=== PATIENT | female | born 1935 | race Caucasian/White ===

== ENCOUNTER 2019-08-22 11:22 | Outpatient (CLI) | payer MEDICARE, OTHER, SELFPAY ==
--- NOTE | 2019-08-22 11:29 | XR_ITS ---
WS: [id number] Chest 2 views, 08/22/2019 Clinical Data: [facility] Comparison: Portable chest, 04/24/2017 Findings: No nodules, masses or effusions are seen. The heart is normal. The pulmonary vascularity is not increased. There is a patchy opacity seen best on lateral chest overlying the posterior lower surekha ng. This is probably on the left. This could represent minimal pneumonia or atelectasis.. The aortic arch and descending aorta are tortuous. XR/XR chest 2V* 63571 Impression: 1. Patchy opacity seen best on lateral chest which could represent minimal pneu monia and recommend repeat chest x-ray at 1-2 days. 2. Atherosclerosis.
== END 2019-08-22 11:23 | disposition home or self-care (01) ==
PROVIDERS: Family Provider Internal Medicine; PCP Internal Medicine; Visit Provider Internal Medicine
DX: I70.0 Atherosclerosis of aorta (principal); R10.9 Unspecified abdominal pain; R07.9 Chest pain, unspecified
CPT/HCPCS: 71046

== ENCOUNTER → 2019-08-29 13:21 | Outpatient (BNVA) | payer MEDICARE, OTHER, SELFPAY | PROVIDERS: Family Provider Internal Medicine; PCP Internal Medicine; Visit Provider Nurse Practitioner Family | DX: N39.0 Urinary tract infection, site not specified (principal) | CPT/HCPCS: 81001; 87086 ==

== ENCOUNTER 2019-10-02 09:08 | Outpatient (CLI) | payer MEDICARE, OTHER, SELFPAY ==
[2019-10-02 09:15] VITALS: BMI 25.1
--- NOTE | 2019-10-02 10:08 | ECG_ITS ---
NAME OF STUDY: LEXISCAN SESTAMIBI STRESS TEST INDICATION: [Chest Pain] RESTING B/P 176/84 Please note that this is a electrocardiogram portion of the Lexiscan sestamibi stress test. Perfusion imaging will be documented on a separate report. Data At baseline heart rate was noted to be 69 bpm. Baseline blood pressure noted to be 176/84 Target heart rate was 115 . Maximum Heart rate achieved was 102 . Maximum blood pressure achieved was 184/82 mmHg. Reason for, ending this test was completion of the stress protocol. Patient did have sob, during this procedure ,improved with recovery Electrocardiogram Baseline normal sinus rhythm , IRBBB with no ST changes. Exercise EKG at peak exercise reveals normal sinus rhythm with no new ST changes . No cardiac arrhythmias noted. Conclusions 1. Electrocardiographic component of this cardiac stress test is negative for cardiac ischemia. 2. Please see separate report for report for the myocardial perfusion imaging Electronically Signed On 10-03-2019 12:15:54 CDT by Froilan Perez [email or web address]
--- NOTE | 2019-10-02 10:08 | NMCV_ITS ---
NM dominik perf SPECT r/s* [id number] Madi Morgan Age: 84 Gender: F : 1935 Exam Date: 10/02/2019 10:41 Ordering Phys: Ishaan Pla MD Technologist: ROMINA Diamond Exam Location: [facility] Indications: CHEST PAIN STRESS TEST [facility] IMAGE PROTOCOL Rest/Stress 1 Lexiscan Day Radiopharmaceutical Dose (mCi) Administration Site Administered by Rest: Tc-99m 10.7 IV ROMINA Diamond Sestamibi Stress:Tc-99m 32.8 IV ROMINA Finn Sestamibi Rest: 02-Oct-2019 60 Discovery 630 Stress: 02-Oct-2019 30 Discovery 630 0.4mg Lexiscan. Images obtained in supine and prone position. SPECT RESULTS Technical Quality: Excellent Raw Data Analysis: Normal Image Corrections: No attenuation or motion correction applied Summed Stress Score: 9 Summed Rest Score: 4 Summed Difference Score: 5 PERFUSION FINDINGS Small size perfusion abnormality of moderate severity of mid to apical inferolateral and mid inferior wall on rest images with reversibility noted in mid to apical inferior and apical lateral wall on supine stress images. There is improved tracer uptake on mid to apical inferior wall on prone stress images. FUNCTIONAL RESULTS (calculated via Gated SPECT) Stress Image LV EF (%): 85 Stress EDV (mL):68 TID: 1.06 Stress ESV (mL):10 FUNCTIONAL FINDINGS: The left ventricle is normal in size. Transient Ischemia Dilatation of 1.1. There is hyperdynamic left ventricular systolic function. The left ventricular ejection fraction is hyperdynamic with a value of 85%. There is hyperdynamic left ventricular wall thickening. IMPRESSIONS 1. Small sized perfusion abnormality of mid to apical inferolateral and mid to apical inferior hidalgo with reversibility noted in inferior and apical lateral hidalgo on supine stress images and with improved tracer uptake on prone stress images. 2. These findings likely represent attenuation artifact. 3. The left ventricular ejection fraction is hyperdynamic with a value of 85%. 4. There is hyperdynamic left ventricular wall thickening. 5. No significant coronary ischemia based on the study. Sauld Larios MD (Electronically Signed) Final Date: 04 October 2019 15:33 S
--- NOTE | 2019-10-02 12:09 | SUR.PREOP ---
Patient reports no pain or discomfort prior to the start of the procedure.
[2019-10-02] MEDS: regadenoson 0.4 Mg/5 ml Syringe IVP (12:14)
[2019-10-02] MEDS: aminophylline 25 mg/mL SDV 10 mL IVP (12:27)
[2019-10-02 12:37] VITALS: BP 184/86; PULSE 83
== END 2019-10-02 09:09 | disposition home or self-care (01) ==
LOC: CDL 09:09
PROVIDERS: Family Provider Internal Medicine; PCP Internal Medicine; Visit Provider Internal Medicine
DX: R07.9 Chest pain, unspecified (principal)
CPT/HCPCS: 78452; 93017; 96374; A9500; J0280; J2785

== ENCOUNTER → 2020-02-26 11:00 | Outpatient (BNVA) | payer MEDICARE, OTHER, SELFPAY | PROVIDERS: Family Provider Internal Medicine; PCP Internal Medicine; Visit Provider Urology | DX: N39.0 Urinary tract infection, site not specified (principal) | CPT/HCPCS: 80053; 81001; 87077; 87086; 87186 ==

== ENCOUNTER → 2020-10-27 16:02 | Outpatient (BNVA) | payer MEDICARE, OTHER, SELFPAY | PROVIDERS: Family Provider Internal Medicine; PCP Internal Medicine; Visit Provider Urology | DX: N39.0 Urinary tract infection, site not specified (principal) | CPT/HCPCS: 81003; 87077; 87086; 87184 ==

== ENCOUNTER → 2020-11-25 13:00 | Outpatient (BNVA) | payer MEDICARE, OTHER, SELFPAY | PROVIDERS: Family Provider Internal Medicine; PCP Internal Medicine; Visit Provider Internal Medicine | DX: R41.81 Age-related cognitive decline (principal); I10 Essential (primary) hypertension; N39.41 Urge incontinence; N39.0 Urinary tract infection, site not specified; K21.9 Gastro-esophageal reflux disease without esophagitis; R07.9 Chest pain, unspecified | CPT/HCPCS: 80053; 82607; 82746; 84443; 85025 ==

== ENCOUNTER → 2020-12-10 16:12 | Outpatient (BNVA) | payer MEDICARE, OTHER, SELFPAY | PROVIDERS: Family Provider Internal Medicine; PCP Internal Medicine; Visit Provider Nurse Practitioner Family | DX: N39.0 Urinary tract infection, site not specified (principal) | CPT/HCPCS: 81003; 87086 ==

== ENCOUNTER → 2021-01-04 13:45 | Outpatient (BNVA) | payer MEDICARE, OTHER, SELFPAY | PROVIDERS: Family Provider Internal Medicine; PCP Internal Medicine; Visit Provider Nurse Practitioner Family | DX: N39.0 Urinary tract infection, site not specified (principal) | CPT/HCPCS: 81003; 87077; 87086; 87184 ==

== ENCOUNTER 2021-01-13 09:42 | Outpatient (CLI) | payer MEDICARE, OTHER, SELFPAY ==
[2021-01-13] MEDS: iodixanol 320 mg/mL 100mL Btl IV (10:12)
--- NOTE | 2021-01-13 11:30 | CT_ITS ---
WS: [id number] CT ABDOMEN PELVIS TECHNIQUE: Noncontrast CT of the abdomen and contrast-enhanced CT of the abdomen and pelvis with patricia nal and sagittal reformatted images. CLINICAL INFORMATION: GROSS HEMATURIA COMPARISON: CT 9 29,013 DLP: 1346.[address] scans at [facility] use at least one of these dose optimization techniques: automat ed exposure control; mA and/or kV adjustment per patient size (includes targeted exams where dose is matched to clinical indication); or iterative reconstruction. FINDINGS: Diffuse fatty infiltration liver. Normal portal vein and splenic vein. Large esophageal hiatal hernia with intrathoracic stomach. This progressed since 2013. Emphysematous changes in the lung bases. Sub pleural nodule left lower lobe measuring 8 mm with some surrounding infiltrate. Normal spleen. Pancreas appears normal. Adrenal glands are normal. Normal caliber abdominal aorta. Ao rtic calcification. Adrenal glands are normal. Normal renal parenchymal enhancement. Small right renal cysts largest measuring 1.4 CM. Peripelvic l eft renal cysts. Normal corticomedullary differentiation. Normal excretion on the delayed images. Nor mal bladder filling. No visualized filling defects in the bladder. Pleural thickening and enhancement along the anterior lateral bladder wall measuring 1.3 x 1.2 CM. Re commend further evaluation with cystoscopy to exclude neoplasm. Loss of the fat plane between the ant erolateral bladder and sigmoid colon near this area with nondependent air in the bladder. Colonic ves icular fistula not excluded. In addition, mild diffuse thickening and inflammatory stranding about th e sigmoid colon suspicious for mild or early diverticulitis. No abscess or fluid collection. Tortuous sigmoid colon. Disc space narrowing worse at L3-4. CT/CT abdomen pelvis wo/w [id number] IMPRESSION: 1. Focal thickening and enhancement along the anterior lateral bladder wall me asuring 1.3 x 1.2 CM. Recommend evaluation with cystoscopy to evaluate for neop lasm. 2. Moderate amount of nondependent air within the bladder is nonspecific. Butch mmend correlation for recent bladder instrumentation. Sigmoid colon is closely applied to the anterior lateral bladder wall with loss of the fat plane and fis esa not excluded. This is also adjacent to the focal area of thickening and en hancement described above 3. Tortuous sigmoid colon with mild diffuse thickening of the sigmoid colon hein spicious for mild or early diverticulitis. Correlation for infection. No eviden ce of drainable abscess or fluid collection. 4. Large esophageal hiatal hernia with intrathoracic stomach progressed from p revious. 5. Normal bilateral renal parenchymal enhancement with normal excretion. No hy dronephrosis. 6. 1.4 cm right renal cyst. 7. Ovoid opacity left lower lobe measuring 8.2 mm with surrounding infiltrate. Recommend follow-up chest CT.
== END 2021-01-13 09:43 | disposition home or self-care (01) ==
LOC: RAD 09:47
PROVIDERS: PCP Internal Medicine; Visit Provider Urology
DX: R31.0 Gross hematuria (principal); Q61.01 Congenital single renal cyst; K44.9 Diaphragmatic hernia without obstruction or gangrene
CPT/HCPCS: 74178

== ENCOUNTER → 2021-01-15 10:23 | Outpatient (BNVA) | payer MEDICARE, OTHER, SELFPAY | PROVIDERS: PCP Internal Medicine; Visit Provider Urology | DX: R31.0 Gross hematuria (principal); N32.1 Vesicointestinal fistula; N39.0 Urinary tract infection, site not specified | CPT/HCPCS: 81003 ==

== ENCOUNTER → 2021-01-27 14:15 | Outpatient (BNVA) | payer MEDICARE, OTHER, SELFPAY | PROVIDERS: PCP Internal Medicine | DX: Z01.812 Encounter for preprocedural laboratory examination (principal); Z20.822 Contact with and (suspected) exposure to COVID-19 | CPT/HCPCS: 87635 ==

== ENCOUNTER 2021-01-29 08:53 | Day surgery (SDC) | payer MEDICARE, OTHER, SELFPAY ==
[2021-01-27 13:07] VITALS: BMI 23.0
--- NOTE | 2021-01-29 09:11 | ANES.PREANE2 ---
Pre-Anesthetic Assessment Pre-Anesthetic Assessment: Height/Weight: Height 1.6 m Weight 58.967 kg Proposed Procedure: Operation Date: 01/29/21 10:30 Proposed Procedures p Colonoscopy G0121 Z12.11(Not Applicable) - Ishaan Pal MD Was Beta Vince taken within 24 hours: N/A Was Clonidine taken within 24 hours: N/A Social: Social History: No alcohol and No tobacco Exam: Pre-Anes Outpt Exam: alert, oriented x 3, clear to auscultation bilaterally and regular rate & rhythm Airway: Submandibular: WNL Cervical ROM: WNL MP: 2 Dentition: False CV/HEM: CV/HEM: HTN GI: GI: GERD Musc/skel: Musc/skel: OA/DJD Neuropsych: Neuropsych: Anxiety Anesthetic Plan: ASA status: 3 Anesthesia: MAC Risk of > 500 ml blood loss (7ml/kg in children): No PFSH Anesthesia PFSH: Medical History (Updated 01/25/21 @ 11:02 by Barrtet Pritchett MD) Colovesical fistula Constipation Essential (primary) hypertension GERD (gastroesophageal reflux disease) Recurrent UTI Urgency incontinence Surgical History (Updated 01/25/21 @ 11:03 by Barrett Pritchett MD) History of colonoscopy 04/09/2018 S/P cystoscopy Family History Other Diabetes Heart disease Social History Alcohol intake: never Adopted: No Caregiver/support person: No Lives independently: No Household members: spouse Housing: House Marital status: History of recent travel: No Data Anesthesia Cardiac Studies: No Data to Display
[2021-01-29 09:30] VITALS: BP 149/71; PULSE 92; RESP 18; TEMP 36.9; O2SAT 96
[2021-01-29] MEDS: sodium chloride 0.9% 1,000 ML 30 ML IV (09:45)
[2021-01-29 11:37] VITALS: BP 81/42; PULSE 81; RESP 18; TEMP 36.2; O2SAT 97
[2021-01-29 11:54] VITALS: BP 106/47; PULSE 66; RESP 18; TEMP 36.2; O2SAT 97
--- NOTE | 2021-01-29 12:02 | XR_ITS ---
WS: [id number] ABDOMEN 1 VIEW(S) HISTORY: POST COLONOSCOPY COMPARISON: 04/17/2013 Large amount of gas throughout the GI tract from the recent colonoscopy. No definite free air is iden tified although this is a very insensitive examination. No suspicious calcifications or masses. Osteopenia. XR/XR abdomen 1V* 13175 IMPRESSION: 1. No definite free air identified. 2. Increased air throughout the GI tract. 3. Discussed findings with Dr. Pla. Discussed obtained noncontrast CT of t he abdomen if there is any concern for perforation. Radiograph is a very insens itive examination for free air.
--- NOTE | 2021-01-29 12:14 | SUR.PHASEII ---
Dr. Pal ordered xray of abdomen due to patient complaint of pain. Xray here to perform test.
--- NOTE | 2021-01-29 12:47 | SUR.PHASEII ---
Dr. Pal looked at xray stated everything looked fine patient ok to go home.
--- NOTE | 2021-01-29 15:49 | ANE.PACU2 ---
Inpatient post-anesthesia follow up: Airway intact: Yes Vital signs: Temperature 97.2 F Pulse Rate 66 Respiratory Rate 18 Blood Pressure 106/47 Pulse Oximetry 97 Oxygen Delivery Me thod Room Air Oxygen Flow Rate Fraction of Inspir ed Oxygen Hydration adequate: Yes Nausea and vomiting: No Pain level: 1 Mental status: Baseline
--- NOTE | 2021-02-05 09:13 | W.PM.OPSFHP ---
Same Day Surgery H&P Indication for Procedure/HPI DATE OF PROCEDURE: February 05, 2021 CHIEF COMPLAINT/INDICATIONFOR SURGICAL PROCEDURE: Colovesical fistula PREOP DIAGNOSIS: Colovesicular fistula PLANNED PROCEDRUE: Operation Date: 01/29/21 10:30 Proposed Procedures p Colonoscopy G0121 Z12.11(Not Applicable) - Ishaan Pal MD Medications/Allergies* Allergies/Adverse Reactions Allergy/AdvReac Type Severity Reaction Status Date / Time naproxen [From Aleve] AdvReac ADR-Itching Verified 01/29/21 09:29 Pertinent History/Comorbid Conditions* Medical History (Updated 01/25/21 @ 11:02 by Barrett Pritchett MD) Colovesical fistula Constipation Essential (primary) hypertension GERD (gastroesophageal reflux disease) Recurrent UTI Urgency incontinence Surgical History (Updated 01/25/21 @ 11:03 by Barrett Pritchett MD) History of colonoscopy 04/09/2018 S/P cystoscopy Family History (Updated 08/22/19 @ 08:53 by Shayla Norris LPN) Diabetes Heart disease Social History Alcohol intake: never Adopted: No Caregiver/support person: No Lives independently: No Household members: spouse Housing: House Marital status: History of recent travel: No Pertinent Exam Findings alert, oriented x 3, clear to auscultation bilaterally, regular rate & rhythm, operative site marked and procedure specific exam findings Recommendations Surgery/Procedure today Coding Level of Care Code Acute Metal 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
== END 2021-01-29 13:04 | disposition home or self-care (01) ==
PROVIDERS: PCP Internal Medicine; Visit Provider Internal Medicine
PROC: 0DJD8ZZ Inspection of Lower Intestinal Tract, Via Natural or Artificial Opening Endoscopic (ICD-10-PCS; CPT 45378; principal; 2021-01-29 10:30)
DX: Z12.11 Encounter for screening for malignant neoplasm of colon (principal); Z01.818 Encounter for other preprocedural examination; K57.30 Diverticulosis of large intestine without perforation or abscess without bleeding; I10 Essential (primary) hypertension; K21.9 Gastro-esophageal reflux disease without esophagitis; M19.90 Unspecified osteoarthritis, unspecified site; F41.9 Anxiety disorder, unspecified; Z82.49 Family history of ischemic heart disease and other diseases of the circulatory system; Z83.3 Family history of diabetes mellitus
CPT/HCPCS: 45378; 74018; 96360; 96361; J2704; J7030

== ENCOUNTER → 2021-02-09 10:29 | Day surgery (SDC) | payer MEDICARE, OTHER, SELFPAY | PROVIDERS: PCP Internal Medicine; Visit Provider Urology | DX: Z01.818 Encounter for other preprocedural examination (principal) | CPT/HCPCS: 93005 ==

== ENCOUNTER → 2021-02-09 11:53 | Outpatient (BNVA) | payer MEDICARE, OTHER, SELFPAY | PROVIDERS: PCP Internal Medicine; Visit Provider Surgery | DX: Z20.822 Contact with and (suspected) exposure to COVID-19 (principal) | CPT/HCPCS: 87635 ==

== ENCOUNTER 2021-02-15 12:35 | Inpatient (IN) | payer MEDICARE, OTHER, SELFPAY ==
--- NOTE | 2021-02-09 10:29 | ECG_ITS ---
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 Measurements Intervals Marissa Rate: 63 P: 43 DC: 172 QRS: 15 QRSD: 130 T: 31 QT: 425 QTc: 435 Interpretive Statements SINUS RHYTHM RIGHT BUNDLE BRANCH BLOCK [120+ ms QRS DURATION, UPRIGHT V1, 40+ ms S IN I/aVL/V4/V5/V6] Compared to ECG 04/24/2017 13:47:14 Sinus bradycardia no longer present Electronically Signed On 02-09-2021 14:58:22 CDT by Miguel Alvarez M.D. [id number]
[2021-02-09 10:30] VITALS: BMI 23.7
[2021-02-09 11:24] LABS: Basophils % 0.5 %; Eosinophils # 0.1 10^3/uL (0.0-0.8); Eosinophils % 0.8 %; Hematocrit 38.9 % (37.0-47.0); Hemoglobin 12.1 g/dL (11.5-15.3); Lymphocytes # 1.8 10^3/uL (0.8-4.8); Lymphocytes % 28.6 %; Mean Corpuscular HGB Conc 31.1 g/dL (30.0-36.0); Mean Corpuscular Hemoglobin 29.7 pg (28.0-34.0); Mean Corpuscular Volume 95.6 fL (81-99); Mean Platelet Volume 9.7 fL (7.4-10.4); Monocytes # 0.4 10^3/uL (0.2-0.9); Monocytes % 5.9 %; Neutrophils # 4.09 10^3/uL (1.8-7.7); Nucleated Red Blood Cells % 0 %; Platelet Count 260 10^3/cmm (130-400); Red Blood Count 4.07 10^6/uL (4.1-5.3); Red Cell Distribution Width 14.7 % (12.1-15.1); White Blood Count 6.4 10^3/uL (4.0-10.0)
[2021-02-09 11:59] LABS: Anion Gap 12.5 (5-19); Blood Urea Nitrogen 13 mg/dL (8-23); Calcium 8.5 mg/dL (8.5-10.5); Carbon Dioxide 25 mmol/L (22-29); Chloride 105 mmol/L (98-107); Glucose 92 mg/dL (65-115); Osmolality Calculated 286 mOsm/kg (285-295); Potassium 4.5 mmol/L (3.5-5.1); Sodium 138 mmol/L (136-145)
--- NOTE | 2021-02-09 16:16 | ANES.PREANE2 ---
Pre-Anesthetic Assessment Pre-Anesthetic Assessment: Height/Weight: Height 1.6 m Weight 60.781 kg Preop Diagnosis: Colovesicular fistula Proposed Procedure: Operation Date: 02/15/21 11:20 Proposed Procedures s partial Cystectomy 07928 [id number] n32.1(Not Applicable) - Angel Joya MD s possible Cystoscopy(Not Applicable) - Angel Joya MD p Laparoscopic Sigmoidectomy(Not Applicable) - Barrett Pritchett MD s Colostomy(Not Applicable) - Barrett Pritchett MD Was Beta Vince taken within 24 hours: N/A Was Clonidine taken within 24 hours: N/A Social: Social History: No alcohol and No tobacco Exam: Pre-Anes Outpt Exam: alert, oriented x 3, clear to auscultation bilaterally and regular rate & rhythm Airway: Submandibular: WNL Cervical ROM: WNL MP: 2 Dentition: False CV/HEM: CV/HEM: HTN GI: GI: GERD Comments: Colovesicular fistula Musc/skel: Musc/skel: OA/DJD Neuropsych: Neuropsych: Anxiety Anesthetic Plan: ASA status: 3 Anesthesia: General Risk of > 500 ml blood loss (7ml/kg in children): Yes, adequate IV access and fluids planned PFSH Anesthesia PFSH: Medical History (Updated 01/25/21 @ 11:02 by Barrett Pritchett MD) Colovesical fistula Constipation Essential (primary) hypertension GERD (gastroesophageal reflux disease) Recurrent UTI Urgency incontinence Surgical History (Updated 01/25/21 @ 11:03 by Barrett Pritchett MD) History of colonoscopy 04/09/2018 S/P cystoscopy Family History Other Diabetes Heart disease Social History Alcohol intake: never Adopted: No Caregiver/support person: No Lives independently: No Household members: spouse Housing: House Marital status: History of recent travel: No Data Anesthesia CBC & Chem 7: 02/09/21 11:10 02/09/21 11:10 Other Labs: Laboratory Results - last 48 hr 02/09/21 02/09/21 11:10 11:10 WBC 6.4 RBC 4.07 L Hgb 12.1 Hct 38.9 MCV 95.6 MCH 29.7 MCHC 31.1 RDW 14.7 Plt Count 260 MPV 9.7 Neut % (Auto) 64.0 Lymph % (Auto) 28.6 [place] % (Auto) 5.9 Eos % (Auto) 0.8 Baso % (Auto) 0.5 Neut # (Auto) 4.09 Lymph # (Auto) 1.8 [place] # (Auto) 0.4 Eos # (Auto) 0.1 Baso # (Auto) 0.0 Nucleated RBC % (auto) 0 Nucleated RBCs # 0.0 Sodium 138 Potassium 4.5 Chloride 105 Carbon Dioxide 25 Anion Gap 12.5 BUN 13 Creatinine 0.7 GFR Calculation Not Reportable Glucose 92 Calculated Osmolality 286 Calcium 8.5 Cardiac Studies: No Data to Display
[2021-02-15] VITALS (15 sets, daily range): BP systolic 136–185; BP diastolic 61–85; PULSE 72–89; RESP 14–20; TEMP 36.3–37; O2SAT 92–99
[2021-02-15] MEDS: sodium chloride 0.9% 1,000 ML 30 ML IV (10:12)
--- NOTE | 2021-02-15 11:50 | W.PM.OPSUD ---
Surgery/Procedure H&P Update DATE OF PROCEDURE: February 15, 2021 DATE H&P PERFORMED: 01/25/21 H&P UPDATE INFORMATION: I have reviewed H&P completed within last 30 days, I have examined patient prior to procedure and No changes to prior documentation PREOP DIAGNOSIS: Colovesical fistula PLANNED PROCEDURE: Operation Date: 02/15/21 10:55 Proposed Procedures s partial Cystectomy 48172 [id number] n32.1(Not Applicable) - Angel Joya MD s possible Cystoscopy(Not Applicable) - Angel Joya MD p Laparoscopic Sigmoidectomy(Not Applicable) - Barrett Pritchett MD s Possible Colostomy(Not Applicable) - Barrett Pritchett MD
[2021-02-15] MEDS: piperacillin-tazobactam 3.375 GM in sodium chloride 0.9% (plus) 50 ML IV (13:05)
--- NOTE | 2021-02-15 14:39 | SUR.OPER ---
NOTIFIED OF PROGRESS OF SURGERY AND PATIENT STATUS PER PHONE NUMBER PROVIDED
--- NOTE | 2021-02-15 15:15 | PM.OP ---
Operative Report Date of procedure: February 15, 2021 Pre-op Diagnosis: Colovesical fistula Post-op diagnosis: same Procedure Done: 1. Closure of cystotomy Pathology: none sent Surgeon: Toan Glass Melt Operator: Shreyas Anesthesia: General Estimated blood loss: Less than 10 cc Urine output: Not measured Complications: None Findings: Bladder closure created with division of colovesical fistula was located on the dome. Closed in 2 layers. Watertight on irrigation of the bladder Condition: stable Disposition: PACU Brief History: Mrs. Morgan is a very pleasant 85-year-old white female recently diagnosed with a colovesical fistula. Post diagnosis colonoscopy showed no evidence of malignant process. She is admitted now for a combined procedure with Dr. Pritchett and myself for treatment of the colovesical fistula. Procedure: After routine preoperative evaluation examination and obtaining of informed consent she was taken to the operating suite on 02/15/2021 where general anesthesia was administered without difficulty. Please see Dr. Pritchett's note regarding all facets of the procedure prior to my arrival. I was called into the room after the bowel had been taken off of the bladder with resection of the involved bladder wall with good exposure of the edges, Trammell balloon, and both ureteral orifices well away from the incision. The wound was irrigated. Utilizing a self-retaining at retractor bladder wall was exposed. Allis clamps were placed at both ends of the incision with closure planned horizontally. The first layer involve 3-0 Vicryl with a mucosal muscularis running closure. The incision was closed from lateral to medial on both sides. A second layer was a 2-0 Vicryl with imbricating adventitial muscularis running suture. Also close from lateral to medial on both sides. The bladder was inflated with 60 cc of sterile saline and watertightness was confirmed. The patient was turned back over to Dr. Pritchett for completion of his portion. We reviewed placement peritoneum were available over the incision and if possible omental fat pad to help reduce the risk of urine leakage. She tolerated this portion procedure well without complications.
[2021-02-15] MEDS: sodium chloride 0.9% SDV 10 mL 20 ML (16:45)
--- NOTE | 2021-02-15 17:27 | PM.OP ---
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 The patient was placed in modified lithotomy position with shoulder support and the Trammell catheter was placed. The rectum was irrigated with diluted Betadine using red rubber catheter. The abdomen and the perineum was prepped and draped in a sterile manner. Using a 15 blade, a midline supraumbilical incision was made and using open Echevarria technique the peritoneal cavity was entered, 12 mm port was placed and 15 mm of pneumoperitoneum was created. A 10 mm 30? scope was introduced. 5 mm ports were placed in the right lower quadrant and at the level of the umbilicus under direct visualization in the midclavicular line. Examination of the colon revealed a sigmoid colon adherent to the inferior abdominal wall as well as the dome of the urinary bladder. The patient was placed in steep Trendelenburg position and rotated to the right in order to place a small bowel loops in the right upper quadrant. The transverse colon was retracted superiorly. There were adhesions of the sigmoid colon to the abdominal wall which were taken down. The line of Toldt was opened along the descending colon up to the splenic flexure and the avascular plane was entered to mobilize the descending colon medially. Using Enseal the sigmoid colon was slowly freed up from the inferior abdominal wall and the dissection was carried inferiorly. There was no plane appreciated between the dome of the urinary bladder and the sigmoid colon and therefore an opening was made in the urinary bladder where the tissue appeared healthy and using Enseal a partial cystectomy was performed incorporating the colovesical fistula. The dissection was carried laterally and the phlegmon was freed from the right pelvic wall. The sigmoid mesocolon was divided using Enseal down to the proximal rectum. The uterus was adherent to the anterior aspect of the rectum and this was partially mobilized. The right lower quadrant port was converted to a 12 mm Echevarria port. 2 loads of 45 mm blue load [place] JULISSA stapler was introduced through the right lower quadrant port to divide the rectum distally. At this point it appeared that the descending colon reached up to the rectum. 20cc of saline mixed with 20cc of Exparel mixed with 20cc of 0.5% Marcaine was infiltrated in the midclavicular line under laparoscopic visualization for a TAP block bilaterally. An incision was made in the suprapubic area using a 15 blade, subcutaneous tissue, linea alba and peritoneum was divided to enter the peritoneal cavity. A wound protector was placed and at this point Dr. Joya joined me. He performed a closure of the partial cystectomy. Please refer to his note for further details. After closure of the cystectomy had been performed, the sigmoid colon was exteriorized. A noncrushing bowel clamps were placed on the descending colon and an Autosuture pursestring was placed and the colon was divided and the specimen removed from the operating field. Serial anal dilators were used and it was decided to proceed with the 29 mm EEA stapler. The anvil of the EEA stapler was introduced into the descending colon and tied down. The colon was introduced into the peritoneal cavity and the pneumoperitoneum was recreated. The anus was digitally dilated and the EEA stapler was introduced through the anal canal and the trocar passed through the previously created staple line and attached to the anvil after ensuring that there was no twisting of the mesentery. The EEA stapler was fired to create the stapled 29 mm end-to-end anastomosis and 2 intact doughnuts were retrieved which were sent as proximal margin and distal margin to pathology. A colonoscope was introduced and passed beyond the anastomosis after submerging the anastomosis under saline in the pelvis. The air leak test was negative. There was no significant bleeding noted from the staple line. The colonoscope was withdrawn. All 3 ports were removed under direct visualization and the fascia in the midline was closed using #1 loop PDS. The fascia of the right lower quadrant port and supraumbilical port was closed using [id number] 0 Vicryl suture. The subcutaneous tissue was approximated using 3-0 Vicryl suture and skin was closed using running subcuticular 4-0 Monocryl suture and Dermabond. The patient was subsequently extubated and transferred to recovery room with a Trammell catheter in place.
--- NOTE | 2021-02-15 17:32 | SUR.PHASEI ---
1724 PATIENT TO PACU FROM OR. RR EVEN AND UNLABORED. SPO2 99% ON SIMPLE MASK AT 6L. DERMABOND TO ABDOMEN X4 INCISIONS. CDI. MARIE CATH IN PLACE, PINK TINGED URINE NOTED, SECURED TO RIGHT LEG.
--- NOTE | 2021-02-15 18:14 | SUR.PHASEI ---
1755 PATIENT TO MED SURG VIA BED. NO DISTRESS. INCISIONS TO ABDOMEN, CDI, CLOSED WITH DERMABOND. FAMILY ON MED SURG WHEN I ARRIVED WITH PATIENT.
[2021-02-15] MEDS: sennosides-docusate Tablet 1 TAB PO (18:29)
[2021-02-15] MEDS: D5-NS 0.45% + KCL 20 mEq 20 MEQ/1,000 ML BAG 100 MEQ IV (18:29)
[2021-02-15] MEDS: famotidine 20 mg/2 mL INJ IVP (18:29)
--- NOTE | 2021-02-15 19:32 | ANE.PACU2 ---
Inpatient post-anesthesia follow up: Airway intact: Yes Vital signs: Temperature 97.5 F Pulse Rate 84 Respiratory Rate 18 Blood Pressure 165/64 Pulse Oximetry 98 Oxygen Delivery Me thod Nasal Cannula Oxygen Flow Rate 2 Fraction of Inspir ed Oxygen Hydration adequate: Yes Nausea and vomiting: No Pain level: 2 Mental status: Baseline
[2021-02-15 20:12] LABS: Basophils # 0.1 10^3/uL (0.0-0.1); Basophils % 0.5 %; Hematocrit 40.9 % (37.0-47.0); Hemoglobin 12.6 g/dL (11.5-15.3); Lymphocytes # 0.5 10^3/uL (0.8-4.8); Lymphocytes % 3.5 %; Mean Corpuscular HGB Conc 30.8 g/dL (30.0-36.0); Mean Corpuscular Hemoglobin 29.9 pg (28.0-34.0); Mean Corpuscular Volume 96.9 fL (81-99); Mean Platelet Volume 9.8 fL (7.4-10.4); Monocytes # 0.6 10^3/uL (0.2-0.9); Monocytes % 4.2 %; Neutrophils # 11.91 10^3/uL (1.8-7.7); Neutrophils % 91.5 %; Nucleated Red Blood Cells % 0 %; Platelet Count 273 10^3/cmm (130-400); Red Blood Count 4.22 10^6/uL (4.1-5.3); Red Cell Distribution Width 14.6 % (12.1-15.1)
[2021-02-15 20:39] LABS: Anion Gap 13.9 (5-19); Blood Urea Nitrogen 9 mg/dL (8-23); Calcium 7.4 mg/dL (8.5-10.5); Carbon Dioxide 23 mmol/L (22-29); Chloride 106 mmol/L (98-107); Glucose 163 mg/dL (65-115); Osmolality Calculated 290 mOsm/kg (285-295); Potassium 3.9 mmol/L (3.5-5.1); Sodium 139 mmol/L (136-145)
[2021-02-15] MEDS: ceFOXitin 2,000 MG in sodium chloride 0.9% (plus) 50 ML 100 MG IV (22:02)
[2021-02-16] VITALS (13 sets, daily range): BP systolic 136–179; BP diastolic 56–68; PULSE 68–89; RESP 14–20; TEMP 36.8–37.3; O2SAT 88–100
[2021-02-16] MEDS: HYDROcodone-acetaminophen 5-325 mg Tablet 1 TAB PO ×4 (00:10→20:56)
[2021-02-16] MEDS: D5-NS 0.45% + KCL 20 mEq 20 MEQ/1,000 ML BAG 100 MEQ IV (04:36)
[2021-02-16] MEDS: ceFOXitin 2,000 MG in sodium chloride 0.9% (plus) 50 ML 100 MG IV (04:38)
[2021-02-16] MEDS: nitroglycerin 0.4 mg sublingual Tablet SUBLINGUAL ×2 (04:53→18:31)
[2021-02-16] MEDS: morphine 4 mg/mL SDV 1 mL 3 MG IVP (05:04)
--- NOTE | 2021-02-16 05:05 | PC.NURSE ---
PAIN Pt had c/o chest pain Pain was in right side of chest and she was belching. Had laproscopic procedure so explained may be from that but would try Ntg if pt wanted. She wanted to try a Ntg. just to see if it would help. Did express some relief with it but then stated pain for sure in her abdomen now. RN gave Morphine IV and will monitor
[2021-02-16 05:50] LABS: Basophils % 0.1 %; Hematocrit 37.9 % (37.0-47.0); Hemoglobin 11.4 g/dL (11.5-15.3); Lymphocytes # 1.4 10^3/uL (0.8-4.8); Lymphocytes % 12.1 %; Mean Corpuscular HGB Conc 30.1 g/dL (30.0-36.0); Mean Corpuscular Hemoglobin 29.5 pg (28.0-34.0); Mean Corpuscular Volume 98.2 fL (81-99); Monocytes # 0.7 10^3/uL (0.2-0.9); Monocytes % 5.9 %; Neutrophils # 9.35 10^3/uL (1.8-7.7); Neutrophils % 81.6 %; Nucleated Red Blood Cells % 0 %; Platelet Count 272 10^3/cmm (130-400); Red Blood Count 3.86 10^6/uL (4.1-5.3); Red Cell Distribution Width 14.7 % (12.1-15.1); White Blood Count 11.5 10^3/uL (4.0-10.0)
[2021-02-16 06:09] LABS: Anion Gap 12.2 (5-19); Blood Urea Nitrogen 7 mg/dL (8-23); Calcium 7.7 mg/dL (8.5-10.5); Carbon Dioxide 21 mmol/L (22-29); Chloride 107 mmol/L (98-107); Glucose 126 mg/dL (65-115); Osmolality Calculated 282 mOsm/kg (285-295); Potassium 4.2 mmol/L (3.5-5.1); Sodium 136 mmol/L (136-145)
[2021-02-16] MEDS: lanolin oint 7 gm 1 APPLIC TOPICAL (06:24)
[2021-02-16] MEDS: famotidine 20 mg/2 mL INJ IVP ×2 (07:05→18:00)
[2021-02-16] MEDS: losartan 50 mg Tablet 100 MG PO (08:18)
[2021-02-16] MEDS: sennosides-docusate Tablet 1 TAB PO ×2 (08:19→18:00)
--- NOTE | 2021-02-16 09:53 | PC.NURSE ---
Removed urinary catheter. Catheter intact. Patient tolerated well. Bedside comode placed by patient's bed.
--- NOTE | 2021-02-16 10:29 | PC.CHAP ---
Pastoral Care Encounter/Spiritual Assessment Type of Contact [] Declined storage engineer visit [] Patient/Family/Request visit [] Outpatient visit [] Follow-up visit [] Physician referral [] Code/Alert [x] Routine visit [] Staff referral [] Actively dying [] Patient sleeping [] Family support [] [] Out of room [] Palliative care [] [] Receiving care in room [] Pre-surgical visit [] Trauma [] Long length of stay [] ICU visit [] Other: Relational/Emotional Strength [x] Patient feels connected with others/family/visitors/staff [] Distress [] Loneliness/isolation [] Abandonment Spirituality of Patient [x] Person of [place] [x] Attends Quaker of their [place] []x Believes in Prayer [] Reads Bible or Orthodox materials [] There are Spiritual issues to be addressed Operations Plant Attendant Interventions [x] Prayer [x]x Active listening x[] Non-anxious presence [x] Spiritual/emotional support [] Crisis/trauma care [] Spiritual counseling [] Bereavement support [] Provided bereavement packet [] Provided Bible/devotional materials [] Provided toy/stuffed animal, coloring book to patient or family member [] Provided Communion [] Anointing/[place] [] Salvation [] Completed spiritual assessment [] Other: Impact on Illness or Injury [] Angry [] Fearful [] Anxious [] Often cries [] Exhaustion [] Unable to work [] Unable to attend yazdanism [] Unable to walk/stand [] Unable to read [] Unable to drive [] Unable to eat/drink [] Unable to sleep [] Unable to be with family [] Patient intubated [] Other: Summary PATIENT SAYS LESS PAIN TODAY Time spent with patient 10 MIN
--- NOTE | 2021-02-16 13:51 | PC.NURSE ---
Patient rated pain at a 6/10. Patient refused wanting a pain medication at this time. Will continue to monitor
[2021-02-16] MEDS: enoxaparin 40 mg/0.4 mL Syringe SUBCUT (15:47)
--- NOTE | 2021-02-16 16:49 | PC.NURSE ---
Updated patient's daughter on patient's condition.
--- NOTE | 2021-02-16 17:53 | PM.PN ---
Subjective Subjective: Interval history: pat complaining of abdominal pain, no nausea, vomiting, no flatus or BM, tolerating clears Medications: Reviewed: Yes Vitals/I&O/Wt Last Vital Signs Temp 98.6 F 02/16/21 15:38 Pulse 71 02/16/21 15:38 Resp 14 02/16/21 15:38 BP 154/63 02/16/21 15:38 Pulse Ox 97 02/16/21 15:38 02/16/21 02/16/21 02/16/21 06:59 14:59 22:59 Intake Total 1050 / 2100 553.333 / 553.333 Output Total 300 / 1450 800 / 800 Balance 750 / 650 -246.667 / -246.667 Physical Exam Narrative: EXAM NARRATIVE: Abdomen: soft, tender, non distended, incision c/d/i Urinary Catheter Management^: Trammell: Cath Placed During This Visit: yes Urinary Catheter Date of Insertion: 02/15/21 Urinary Catheter Time of Insertion: 13:22 Data : 02/16/21 05:14 02/16/21 05:14 A&P Assessment and plan (1) Status post laparoscopic-assisted sigmoidectomy: s/p laparoscopic assisted sigmoidectomy with partial cystectomy with post op ileus decrease ivf @30cc/hr morphine/norco for pain control senna s for bowel regimen keep Trammell for 2 weeks resume home meds Lovenox/SCD for DVT prophylaxis Pepcid for GI prophylaxis Patient will need greater than 2 nights of inpatient stay Status: Acute Attestations Medical Necessity Statement*: patient will need greater than 2 nights of inpatient stay Coding Level of Care Code Acute 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
--- NOTE | 2021-02-16 18:41 | PC.NURSE ---
patient has been up and ambulating in the room all day. patient has gotten self out of bed and used the BSC and bathroom. patient even walked to the doorway several times and looked down the reilly.
[2021-02-16] MEDS: ondansetron 2 mg/ML SDV 2 mL 4 MG IVP (21:30)
[2021-02-17] VITALS (8 sets, daily range): BP systolic 135–182; BP diastolic 61–67; PULSE 70–87; RESP 14–18; TEMP 36.7–37; O2SAT 93–96
[2021-02-17 02:44] LABS: Basophils % 0.3 %; Eosinophils % 0.3 %; Hematocrit 35.8 % (37.0-47.0); Hemoglobin 11.1 g/dL (11.5-15.3); Lymphocytes # 1.5 10^3/uL (0.8-4.8); Lymphocytes % 17.5 %; Mean Corpuscular Hemoglobin 30.2 pg (28.0-34.0); Mean Corpuscular Volume 97.3 fL (81-99); Mean Platelet Volume 9.9 fL (7.4-10.4); Monocytes # 0.6 10^3/uL (0.2-0.9); Neutrophils # 6.56 10^3/uL (1.8-7.7); Neutrophils % 74.6 %; Nucleated Red Blood Cells % 0 %; Platelet Count 234 10^3/cmm (130-400); Red Blood Count 3.68 10^6/uL (4.1-5.3); Red Cell Distribution Width 14.6 % (12.1-15.1); White Blood Count 8.8 10^3/uL (4.0-10.0)
[2021-02-17 03:04] LABS: Anion Gap 9.7 (5-19); Blood Urea Nitrogen 5 mg/dL (8-23); Calcium 8.1 mg/dL (8.5-10.5); Carbon Dioxide 26 mmol/L (22-29); Chloride 107 mmol/L (98-107); Glucose 112 mg/dL (65-115); Osmolality Calculated 284 mOsm/kg (285-295); Potassium 4.7 mmol/L (3.5-5.1); Sodium 138 mmol/L (136-145)
[2021-02-17] MEDS: D5-NS 0.45% + KCL 20 mEq 20 MEQ/1,000 ML BAG 30 MEQ IV (03:13)
[2021-02-17] MEDS: famotidine 20 mg/2 mL INJ IVP ×2 (06:28→18:07)
[2021-02-17] MEDS: HYDROcodone-acetaminophen 5-325 mg Tablet 1 TAB PO ×2 (07:45→18:14)
[2021-02-17] MEDS: losartan 50 mg Tablet 100 MG PO (09:54)
[2021-02-17] MEDS: sennosides-docusate Tablet 1 TAB PO ×2 (09:54→18:07)
--- NOTE | 2021-02-17 13:24 | P.PN_ITS ---
Subjective Subjective: Interval history: Patient denies any nausea, vomiting, flatus or BM, has some intermittent abdominal pain, off oxygen Vitals/I&O/Wt Last Vital Signs Temp 98.4 F 02/17/21 12:00 Pulse 84 02/17/21 12:00 Resp 17 02/17/21 12:00 BP 182/66 02/17/21 12:00 Pulse Ox 96 02/17/21 12:00 02/16/21 02/17/21 02/17/21 22:59 06:59 14:59 Intake Total 360 / 1480.000 566.667 / 1480.000 Output Total 700 / 1900 400 / 1900 Balance -340 / -420.000 166.667 / -420.000 Physical Exam Narrative: EXAM NARRATIVE: Abdomen: Soft, minimally tender, nonrigid, incision clean dry and intact Urinary Catheter Management^: Trammell: Cath Placed During This Visit: yes Reason for Continuing Indwelling Catheter: Perioperative Use in Selected Surgeries Urinary Catheter Date of Insertion: 02/16/21 Urinary Catheter Time of Insertion: 18:15 Data : 02/17/21 02:25 02/17/21 02:25 A&P Assessment and plan (1) Status post laparoscopic-assisted sigmoidectomy: s/p laparoscopic assisted sigmoidectomy with partial cystectomy with post op ileus DC IV fluids morphine/norco for pain control senna s for bowel regimen keep Trammell for 2 weeks Continue home meds Lovenox/SCD for DVT prophylaxis Pepcid for GI prophylaxis Patient will need greater than 2 nights of inpatient stay to ensure resolution of ileus Status: Acute Attestations Medical Necessity Statement*: Status post sigmoid colectomy requiring continued inpatient stay Coding Level of Care Code Acute 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
[2021-02-17] MEDS: labetalol 5 mg/mL SDV 20mL 10 MG IVP (15:32)
[2021-02-17] MEDS: enoxaparin 40 mg/0.4 mL Syringe SUBCUT (16:40)
[2021-02-18] VITALS (7 sets, daily range): BP systolic 138–177; BP diastolic 59–76; PULSE 71–84; RESP 14–18; TEMP 36.4–36.9; O2SAT 94–97
[2021-02-18] MEDS: HYDROcodone-acetaminophen 5-325 mg Tablet 1 TAB PO (02:21)
[2021-02-18 02:55] LABS: Basophils # 0.1 10^3/uL (0.0-0.1); Basophils % 0.7 %; Eosinophils # 0.2 10^3/uL (0.0-0.8); Eosinophils % 2.3 %; Hematocrit 38.6 % (37.0-47.0); Hemoglobin 11.8 g/dL (11.5-15.3); Lymphocytes % 25.7 %; Mean Corpuscular HGB Conc 30.6 g/dL (30.0-36.0); Mean Corpuscular Hemoglobin 29.7 pg (28.0-34.0); Mean Corpuscular Volume 97.2 fL (81-99); Mean Platelet Volume 9.9 fL (7.4-10.4); Monocytes # 0.5 10^3/uL (0.2-0.9); Monocytes % 6.5 %; Neutrophils # 4.95 10^3/uL (1.8-7.7); Neutrophils % 64.5 %; Nucleated Red Blood Cells % 0 %; Platelet Count 281 10^3/cmm (130-400); Red Blood Count 3.97 10^6/uL (4.1-5.3); Red Cell Distribution Width 14.5 % (12.1-15.1); White Blood Count 7.7 10^3/uL (4.0-10.0)
[2021-02-18 03:16] LABS: Anion Gap 13.1 (5-19); Blood Urea Nitrogen 4 mg/dL (8-23); Calcium 8.7 mg/dL (8.5-10.5); Carbon Dioxide 26 mmol/L (22-29); Chloride 104 mmol/L (98-107); Glucose 120 mg/dL (65-115); Osmolality Calculated 286 mOsm/kg (285-295); Potassium 4.1 mmol/L (3.5-5.1); Sodium 139 mmol/L (136-145)
[2021-02-18] MEDS: famotidine 20 mg/2 mL INJ IVP (06:03)
--- NOTE | 2021-02-18 06:36 | PC.NURSE ---
Shift Note Frequent safety and comfort rounds continue. Orders and/or nursing care completed as indicated. Patient monitored for response to intervention and treatment(s). Education provided includes pain management options, signs and symptoms of infection. Patient had minimal pain throughout the night. Will continue to monitor.
[2021-02-18] MEDS: losartan 50 mg Tablet 100 MG PO (08:17)
[2021-02-18] MEDS: sennosides-docusate Tablet 1 TAB PO (08:17)
--- NOTE | 2021-02-18 09:50 | PC.NURSE ---
I reported the stool to the nurse
[2021-02-18] MEDS: labetalol 5 mg/mL SDV 20mL 10 MG IVP (11:28)
--- NOTE | 2021-02-18 12:32 | PC.SOCIAL ---
Pg 2 IMM Explained to pt Pg 2 IMM. No questions voiced. Provided pt a copy. Initialed, dated, & timed a copy & placed in chart.
--- NOTE | 2021-02-18 13:50 | PM.PN ---
Subjective Subjective: Interval history: Patient has been doing well, denies any nausea or vomiting, tolerating GI soft diet, had a bloody bowel movement Vitals/I&O/Wt Last Vital Signs Temp 97.6 F 02/18/21 11:02 Pulse 72 02/18/21 11:02 Resp 16 02/18/21 11:02 BP 177/70 02/18/21 11:02 Pulse Ox 94 02/18/21 11:02 02/17/21 02/18/21 02/18/21 22:59 06:59 14:59 Intake Total 522 / 1002 480 / 480 Output Total 2049 650 / 2050 Balance 247 / -1048 -650 / -1048 480 / 480 Physical Exam Narrative: EXAM NARRATIVE: Abdomen: Soft, tender, nondistended, incision clean dry and intact Urinary Catheter Management^: Trammell: Cath Placed During This Visit: yes Reason for Continuing Indwelling Catheter: Other Urinary Catheter Date of Insertion: 02/16/21 Urinary Catheter Time of Insertion: 18:15 Data : 02/18/21 02:36 02/18/21 02:36 A&P Assessment and plan (1) Status post laparoscopic-assisted sigmoidectomy: Overall doing well DC home with Trammell catheter Status: Acute Attestations Medical Necessity Statement*: DC home today Coding Level of Care Code Acute Paint Pourer for Gustabo Pratt Diagnoses Status post laparoscopic-assisted sigmoidectomy Z90.49
--- NOTE | 2021-02-18 13:52 | PM.DCS ---
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 Patient started passing flatus on postop day 2 and today she had a bowel movement. At time of discharge vital signs are stable she is tolerating a GI soft diet and her abdominal pain is reasonably well controlled. She denies any nausea or vomiting. Physical Exam Urinary Catheter Management^: Trammell: Cath Placed During This Visit: yes Reason for Continuing Indwelling Catheter: Other Urinary Catheter Date of Insertion: 02/16/21 Urinary Catheter Time of Insertion: 18:15 Discharge Data Data Completed and Pending: Completed Studies During Hospitalization Category Date Time Status Pathology: Surgic al [PTH] Routine Pth 02/15/21 17:13 Completed Labs from last 24 hours 02/18/21 02/18/21 02:36 02:36 WBC 7.7 RBC 3.97 L Hgb 11.8 Hct 38.6 MCV 97.2 MCH 29.7 MCHC 30.6 RDW 14.5 Plt Count 281 MPV 9.9 Neut % (Auto) 64.5 Lymph % (Auto) 25.7 [place] % (Auto) 6.5 Eos % (Auto) 2.3 Baso % (Auto) 0.7 Neut # (Auto) 4.95 Lymph # (Auto) 2.0 [place] # (Auto) 0.5 Eos # (Auto) 0.2 Baso # (Auto) 0.1 Nucleated RBC % (a uto) 0 Nucleated RBCs # 0.0 Sodium 139 Potassium 4.1 Chloride 104 Carbon Dioxide 26 Anion Gap 13.1 BUN 4 L Creatinine 0.6 GFR Calculation Not Reportable Glucose 120 H Calculated Osmolal ity 286 Calcium 8.7 Vitals: Last Vital Signs Temp 97.6 F 02/18/21 11:02 Pulse 72 02/18/21 11:02 Resp 16 02/18/21 11:02 BP 177/70 02/18/21 11:02 Pulse Ox 94 02/18/21 11:02 Discharge Plan Discharge Patient Disposition: Home Condition: Stable Prescriptions: New hydrocodone-acetaminophen 5-325 mg tablet 1 tab PO Q6H PRN (Reason: pain) Qty: 20 RF: 0 sennosides-docusate sodium [Senna with Docusate Sodium] 8.6-50 mg tablet 1 tab-cap PO BID Qty: 30 RF: 0 ondansetron HCl [Zofran] 4 mg tablet 4 mg PO Q6H PRN (Reason: nausea and vomiting) Qty: 20 RF: 0 Continued nitroglycerin 0.4 mg tablet, sublingual 0.4 mg sublingual Q5M PRN (Reason: chest pain) Qty: 30 RF: 3 alprazolam [Xanax] 0.25 mg tablet 0.25 mg PO .at bedtime PRN (Reason: anxiety) Qty: 30 RF: 3 loratadine 10 mg tablet 10 mg PO DAILY Qty: 30 RF: 6 celecoxib 200 mg capsule 200 mg PO DAILY Qty: 30 RF: 3 irbesartan 300 mg tablet 300 mg PO DAILY Qty: 30 RF: 3 hydrocortisone [Proctozone-HC] 2.5 % cream with perineal applicator 1 applic NM DAILY PRN (Reason: hemorrhoids) Qty: 30 RF: 0 Celexa 40 mg tablet 20 mg PO DAILY PRN (Reason: mood) Qty: 30 RF: 3 omeprazole 40 mg capsule,delayed release(DR/EC) 40 mg PO BID PRN (Reason: Acid Reflux) RF: 0 Discontinued erythromycin 500 mg tablet 500 mg PO DAILY Qty: 3 RF: 0 neomycin 500 mg tablet 1 g PO ONCE Qty: 6 RF: 0 Discharge Orders: Discharge Order (Routine); Ordered 02/18/21 Ordered By: Barrett Pritchett Referrals: Angel Joya MD [Physician] - 03/05/21 8:30 am Barrett Pritchett MD [Physician] - 03/02/21 8:30 am Patient Instructions: Opioid Safety Discharge Attestations Time Spent in Discharge Care*: less than 30 min Quality Metrics Clinical Quality Measures During this hospital stay, did patient experience: None Coding Level of Care Code Acute Chg FW DC note Diagnoses Status post laparoscopic-assisted sigmoidectomy Z90.49
== END 2021-02-18 16:15 | disposition home or self-care (01) | DRG 655 ==
LOC: OR 14:55 → MEDSURG 17:41
PROVIDERS: Anesthesiology; Surgery; Admitting Provider Urology; PCP Internal Medicine; Visit Provider Urology
PROC: 0WQF4ZZ Repair Abdominal Wall, Percutaneous Endoscopic Approach (ICD-10-PCS; principal; 2021-02-15 10:45)
PROC: 0DTN4ZZ Resection of Sigmoid Colon, Percutaneous Endoscopic Approach (ICD-10-PCS; CPT 44204; 2021-02-15 10:45)
DX: N32.1 Vesicointestinal fistula (principal); Z87.440 Personal history of urinary (tract) infections; I10 Essential (primary) hypertension; K21.9 Gastro-esophageal reflux disease without esophagitis
CPT/HCPCS: 36415; 51702; 80048; 85025; 86850; 86900; 88309; 96372; 97110; 97161; C9290; J0360; J0694; J1100; J1170; J1200; J1650; J2270; J2405; J2543; J2704; J2710; J3010; J3490; J7030

== ENCOUNTER → 2022-09-06 12:51 | Outpatient (BNVA) | payer MEDICARE, OTHER, SELFPAY | PROVIDERS: PCP Internal Medicine; Visit Provider Urology | DX: Z87.440 Personal history of urinary (tract) infections (principal) | CPT/HCPCS: 99213 ==

== ENCOUNTER → 2022-10-31 11:36 | Outpatient (BNVA) | payer MEDICARE, OTHER, SELFPAY | PROVIDERS: PCP Internal Medicine; Visit Provider Internal Medicine Cardiovascular Disease | DX: R07.89 Other chest pain (principal); R41.81 Age-related cognitive decline; I10 Essential (primary) hypertension | CPT/HCPCS: 99202 ==

== ENCOUNTER 2022-11-06 19:40 | Emergency (ER) | payer MEDICARE, OTHER, SELFPAY ==
[2022-11-06 19:44] VITALS: BP 193/66; PULSE 70; RESP 16; TEMP 36.4; O2SAT 98; BMI 22.8
[2022-11-06 21:14] VITALS: BP 178/59; PULSE 71; RESP 16; O2SAT 97
--- NOTE | 2022-11-06 21:16 | W.ED.FEMALGU ---
Documented by User: Breezy Tran MD 11/24/22 20:19 HPI - Female Genitourinary General: Chief complaint: Urogenital-Female Stated complaint: uti symptoms Time Seen by Provider: 11/06/22 21:16 History of Present Illness: Ms. Morgan is an 87-year-old lady with history of colovesicular fistula status post repair presenting to the emergency department for lower abdominal and pelvic pain. She reports chronic issues with this however recently her typically effective topical cream has not been effective. She notes increased urinary frequency with small volumes of urine and pain with urination which she describes as burning. Intensity of symptoms moderate to severe. Course has worsened. No other specific changes in health, exacerbating, or alleviating factors identified. Onset (ago): day(s) Severity: moderate Quality of pain: burning Vaginal bleeding: none Urinary symptoms: Dysuria and Foul Smelling Urine Review of Systems General: Reports: 10 or more systems reviewed and unremarkable except in HPI and below PFSH ED PFSH: Medical History Colovesical fistula Constipation Essential (primary) hypertension GERD (gastroesophageal reflux disease) Recurrent UTI Urgency incontinence Surgical History H/O partial cystectomy (02/15/21) History of colonoscopy 04/09/2018 S/P cystoscopy Status post laparoscopic-assisted sigmoidectomy (02/15/21) Family History Other Diabetes Heart disease Social History Smoking and tobacco status: never smoked Alcohol intake: never Substance/Drug Use: never Adopted: No Caregiver/support person: No Lives independently: No Household members: spouse Housing: House Marital status: Physical Exam Const: COMMON NORMALS: alert GENERAL APPEARANCE: cooperative and well developed HENMT: COMMON NORMALS: normocephalic and atraumatic HEAD & SCALP: normocephalic and atraumatic Eye: COMMON NORMALS: conjunctivae normal CONJUNCTIVA: Yes conjunctivae normal SCLERA: sclerae normal Neck/C-Spine: COMMON NORMALS: supple GENERAL: Yes trachea midline Resp: COMMON NORMALS: normal respiratory effort and clear to auscultation bilaterally EFFORT & INSPECTION: Yes able to speak in complete sentences AUSCULTATION: clear to auscultation bilaterally Cardio: COMMON NORMALS: regular rate and regular rhythm RATE: regular rate RHYTHM: regular rhythm GI: COMMON NORMALS: Soft to palpation PALPATION: Yes Soft to palpation and No Tenderness to palpation present (GI) Extremity: GENERAL: Yes normal exam except as noted and No edema Neuro: COMMON NORMALS: moves all extremities SENSORIUM/ORIENTATION: Yes alert and No Orientation impaired Psych: COMMON NORMALS: mental status grossly normal and Normal thought process present THOUGHT PROCESS: Normal thought process present Course Vital Signs: Vital signs: Vital Signs Temperature 97.6 F 11/06/22 19:44 Pulse Rate 89 11/07/22 00:24 Respiratory Rate 15 11/07/22 00:24 Blood Pressure 160/62 11/07/22 00:24 Pulse Oximetry 90 11/07/22 00:24 Oxygen Delivery Me thod Room Air 11/06/22 23:36 MDM - Female Medical Decision Making 87-year-old lady presenting to the emergency department for concern over urinary symptoms with known history of colovesicular fistula. Labs notable for no leukocytosis, normal hemoglobin. Metabolic panel without significant abnormality. Urinalysis concerning for urinary tract infection. CT imaging demonstrates likely enteritis, constipation, other incidental findings discussed with the patient including chest finding and requirement for nonemergent outpatient repeated scan. Patient developed some chest discomfort though not typical of cardiac while in the CT scanner and troponin was added. Handed off to Dr. Harrison pending repeat troponin. Likely plan for discharge with treatment for UTI. 87-year-old female checked out to me at shift change by the previous physician awaiting a second troponin. She had developed chest discomfort in the CT scanning suite treated with GI cocktail. Discomfort is improved. Her second troponin remained stable. She will be allowed home with treatment for her urinary tract infection. Medical Records I reviewed the patient's medical records. Lab Data I reviewed the patient's lab results. 11/06/22 21:40 11/06/22 21:40 Radiology Impressions Abdomen/Pelvis CT 11/06/22 22:03 IMPRESSION: 1. Prominent fluid in the small bowel without dilation may reflect an enteritis, in the appropriate clinical setting. 2. Constipation. 3. Coronary artery atherosclerotic calcifications. 4. Cardiomegaly. 5. Large hiatal hernia. 6. Bibasilar atelectasis. 7. Left lower lobe 15 mm nodule 6, somewhat more prominent compared to prior exam, consider further evaluation with dedicated nonemergent chest CT. 8. Right kidney cyst, negative for follow-up advised. COMMENTS: Consistent with the [employer]'s Incidental Findings Committee white paper (J Am Rosemary Radiol 2018): Any incidental renal lesion less than 1 cm or classified as too small to characterize, or any incidental cystic renal lesion characterized as simple-appearing, is likely benign. No follow-up imaging is recommended for these lesions per consensus recommendations based on imaging criteria. Laboratory Results WBC 6.8 10^3/uL (4.0-10.0) 11/06/22 21:40 RBC 3.89 10^6/uL (4.1-5.3) L 11/06/22 21:40 Hgb 11.9 g/dL (11.5-15.3) 11/06/22 21:40 Hct 37.4 % (37.0-47.0) 11/06/22 21:40 MCV 96.1 fl (81-99) 11/06/22 21:40 MCH 30.6 pg (28.0-34.0) 11/06/22 21:40 MCHC 31.8 g/dL (30.0-36.0) 11/06/22 21:40 RDW 13.6 % (12.1-15.1) 11/06/22 21:40 Plt Count 221 10^3/cmm (130-400) 11/06/22 21:40 MPV 9.5 fL (7.4-10.4) 11/06/22 21:40 Neut % (Auto) 59.7 % 11/06/22 21:40 Lymph % (Auto) 32.3 % 11/06/22 21:40 [place] % (Auto) 6.9 % 11/06/22 21:40 Eos % (Auto) 0.7 % 11/06/22 21:40 Baso % (Auto) 0.3 % 11/06/22 21:40 Neut # (Auto) 4.06 10^3/uL (1.8-7.7) 11/06/22 21:40 Lymph # (Auto) 2.2 10^3/uL (0.8-4.8) 04/23/23 21:40 [place] # (Auto) 0.5 10^3/uL (0.2-0.9) 11/06/22 21:40 Eos # (Auto) 0.1 10^3/uL (0.0-0.8) 11/06/22 21:40 Baso # (Auto) 0.0 10^3/uL (0.0-0.1) 11/06/22 21:40 Nucleated RBC % (auto) 0 % 11/06/22 21:40 Nucleated RBCs # 0.0 /100WBC 11/06/22 21:40 Sodium 138 mmol/L (136-145) 11/06/22 21:40 Potassium 4.1 mmol/L (3.5-5.1) 11/06/22 21:40 Chloride 106 mmol/L (98-107) 11/06/22 21:40 Carbon Dioxide 23 mmol/L (22-29) 11/06/22 21:40 Anion Gap 13.1 (5-19) 11/06/22 21:40 BUN 22 mg/dL (8-23) 11/06/22 21:40 Creatinine 0.8 mg/dL (0.5-0.9) 11/06/22 21:40 GFR Calculation Not Reportable 11/06/22 21:40 Glucose 92 mg/dL (65-115) 11/06/22 21:40 Calculated Osmolality 289 mOsm/kg (285-295) 11/06/22 21:40 Lactate 0.7 mmol/L (0.5-2.2) 11/06/22 21:40 Calcium 8.5 mg/dL (8.5-10.5) 11/06/22 21:40 Total Bilirubin 0.3 mg/dL (0.15-1.2) 11/06/22 21:40 AST 18 U/L (0-32) 11/06/22 21:40 ALT 12 U/L (0-33) 11/06/22 21:40 Alkaline Phosphatase 73 U/L (35-105) 11/06/22 21:40 Troponin T Baseline 10 ng/L (0-10) 11/06/22 21:40 Troponin T 120 Minute 9.66 ng/L (0-10) 11/06/22 23:40 Delta Troponin T -0.44 ABS# (0-10) L 11/06/22 23:40 Total Protein 6.4 g/dL (6.6-8.7) L 11/06/22 21:40 Albumin 3.9 g/dL (3.5-5.2) 11/06/22 21:40 Globulin 2.5 g/dL (1.3-4.6) 11/06/22 21:40 Lipase 42 U/L (13-60) 11/06/22 21:40 Urine Color Yellow (Yellow) 11/06/22 21:00 Urine Appearance Cloudy (CLEAR) A 11/06/22 21:00 Urine pH 5 (5-7) 11/06/22 21:00 Ur Specific [place] 1.025 (1.005-1.030) 11/06/22 21:00 Urine Protein 3+ (Negative) H 11/06/22 21:00 Urine Glucose (UA) Norm (Normal) 11/06/22 21:00 Urine Ketones Negative (Negative) 11/06/22 21:00 Urine Blood 3+ (Negative) H 11/06/22 21:00 Urine Nitrate Positive (Negative) H 11/06/22 21:00 Urine Bilirubin Neg (Negative) 11/06/22 21:00 Urine Urobilinogen Norm mg/dL (Negative) 11/06/22 21:00 Ur Leukocyte Esterase 2+ (Negative) H 11/06/22 21:00 Urine RBC >100 /hpf (0-2) H 11/06/22 21:00 Urine WBC Too numerous to cnt /hpf (0-5) H 11/06/22 21:00 Ur Squamous Epith Cells 0-4 /hpf (0-5) H 11/06/22 21:00 Amorphous Sediment Not Reportable 11/06/22 21:00 Urine Bacteria 3+ /hpf (NONE) H 11/06/22 21:00 Discharge Plan Discharge Patient Disposition: Home Clinical Impression: Acute UTI, Vaginal pain, Constipation, Pulmonary nodule, Hernia, hiatal Condition: Stable Prescriptions: No Action nitroglycerin 0.4 mg tablet, sublingual 0.4 mg sublingual Q5M PRN (Reason: chest pain) Qty: 30 3RF Rx Instructions: do not exceed 3 doses per episode hydrochlorothiazide 25 mg tablet 25 mg PO DAILY Qty: 90 2RF hydrocortisone [Proctozone-HC] 2.5 % cream with perineal applicator 1 applic AR DAILY PRN (Reason: hemorrhoids) Qty: 30 0RF Rx Instructions: apply thing layer twice daily x2 weeks, than 1 daily x1 week, than every other day x 1 week alprazolam [Xanax] 0.25 mg tablet 0.25 mg PO .at bedtime PRN (Reason: anxiety) Qty: 30 3RF omeprazole 40 mg capsule,delayed release(DR/EC) 40 mg PO BID PRN (Reason: Acid Reflux) Qty: 60 4RF Celexa 40 mg tablet 20 mg PO DAILY PRN (Reason: mood) Qty: 30 3RF loratadine 10 mg tablet 10 mg PO DAILY Qty: 30 6RF celecoxib 200 mg capsule 200 mg PO DAILY Qty: 30 3RF irbesartan 300 mg tablet 300 mg PO DAILY Qty: 30 3RF Senna with Docusate Sodium 8.6-50 mg tablet 1 tab-cap PO BID Qty: 30 0RF Discharge Orders: Discharge ED (Routine); Ordered 11/07/22 Ordered By: Vargas Harrison Referrals: Ishaan Pal MD [Primary Care Provider] - Discharge Diet: Advance as tolerated and Clear Liquid Discharge Activity: Increase activity as tolerated Patient Instructions: Hiatal Hernia (ED), Pulmonary Nodules (ED), Urinary Tract Infection in Older Adults (ED) Activity Restrictions/Additional Instructions: Thank you for visiting the emergency department. You were seen and evaluated for vaginal pain. Most likely cause of your symptoms is related to urinary tract infection which will be treated with antibiotics. Incidentally on CT you were noted to have constipation, you may use dmwd-hpe-mclrokd medications for this. Additionally you have a pulmonary nodule which appears somewhat larger than previous, you should follow-up with your primary care provider for consideration of dedicated outpatient CT scan of the chest to further evaluate this. You may use rykw-ega-uihybqp medications such as acetaminophen and ibuprofen for pain however please do not exceed the daily recommended dosage as listed on the packaging and please keep in mind that many namebrand medications contain the same active ingredients. Please avoid these medications if previously instructed to do so by another physician due to other underlying medical condition. Please ensure that you are staying hydrated. Return to the emergency department for fevers, uncontrolled pain, inability to tolerate medication, or anything else that you are concerned about and feel needs emergency department evaluation. Coding Level of Care Code ED Director Adult for Chg Fwd Documented by User: Vargas Harrison DO 11/07/22 02:31 HPI - Female Genitourinary General: Chief complaint: Urogenital-Female Stated complaint: uti symptoms Time Seen by Provider: 11/06/22 21:16 PFSH ED PFSH: Medical History Colovesical fistula Constipation Essential (primary) hypertension GERD (gastroesophageal reflux disease) Recurrent UTI Urgency incontinence Surgical History H/O partial cystectomy (02/15/21) History of colonoscopy 04/09/2018 S/P cystoscopy Status post laparoscopic-assisted sigmoidectomy (02/15/21) Family History Other Diabetes Heart disease Social History Smoking and tobacco status: never smoked Alcohol intake: never Substance/Drug Use: never Adopted: No Caregiver/support person: No Lives independently: No Household members: spouse Housing: House Marital status: Course Vital Signs: Vital signs: Vital Signs Temperature 97.6 F 11/06/22 19:44 Pulse Rate 89 11/07/22 00:24 Respiratory Rate 15 11/07/22 00:24 Blood Pressure 160/62 11/07/22 00:24 Pulse Oximetry 90 11/07/22 00:24 Oxygen Delivery Me thod Room Air 11/06/22 23:36 MDM - Female Medical Decision Making 87-year-old female checked out to me at shift change by the previous physician awaiting a second troponin. She had developed chest discomfort in the CT scanning suite treated with GI cocktail. Discomfort is improved. Her second troponin remained stable. She will be allowed home with treatment for her urinary tract infection. Lab Data 11/06/22 21:40 11/06/22 21:40 Radiology Impressions Abdomen/Pelvis CT 11/06/22 22:03 IMPRESSION: 1. Prominent fluid in the small bowel without dilation may reflect an enteritis, in the appropriate clinical setting. 2. Constipation. 3. Coronary artery atherosclerotic calcifications. 4. Cardiomegaly. 5. Large hiatal hernia. 6. Bibasilar atelectasis. 7. Left lower lobe 15 mm nodule 6, somewhat more prominent compared to prior exam, consider further evaluation with dedicated nonemergent chest CT. 8. Right kidney cyst, negative for follow-up advised. COMMENTS: Consistent with the [place] [employer]'s Incidental Findings Committee white paper (J Am Rosemary Radiol 2018): Any incidental renal lesion less than 1 cm or classified as too small to characterize, or any incidental cystic renal lesion characterized as simple-appearing, is likely benign. No follow-up imaging is recommended for these lesions per consensus recommendations based on imaging criteria. Laboratory Results WBC 6.8 10^3/uL (4.0-10.0) 11/06/22 21:40 RBC 3.89 10^6/uL (4.1-5.3) L 11/06/22 21:40 Hgb 11.9 g/dL (11.5-15.3) 11/06/22 21:40 Hct 37.4 % (37.0-47.0) 11/06/22 21:40 MCV 96.1 fl (81-99) 11/06/22 21:40 MCH 30.6 pg (28.0-34.0) 11/06/22 21:40 MCHC 31.8 g/dL (30.0-36.0) 11/06/22 21:40 RDW 13.6 % (12.1-15.1) 11/06/22 21:40 Plt Count 221 10^3/cmm (130-400) 11/06/22 21:40 MPV 9.5 fL (7.4-10.4) 11/06/22 21:40 Neut % (Auto) 59.7 % 11/06/22 21:40 Lymph % (Auto) 32.3 % 11/06/22 21:40 [place] % (Auto) 6.9 % 11/06/22 21:40 Eos % (Auto) 0.7 % 11/06/22 21:40 Baso % (Auto) 0.3 % 11/06/22 21:40 Neut # (Auto) 4.06 10^3/uL (1.8-7.7) 11/06/22 21:40 Lymph # (Auto) 2.2 10^3/uL (0.8-4.8) 11/06/22 21:40 [place] # (Auto) 0.5 10^3/uL (0.2-0.9) 11/06/22 21:40 Eos # (Auto) 0.1 10^3/uL (0.0-0.8) 11/06/22 21:40 Baso # (Auto) 0.0 10^3/uL (0.0-0.1) 11/06/22 21:40 Nucleated RBC % (auto) 0 % 11/06/22 21:40 Nucleated RBCs # 0.0 /100WBC 11/06/22 21:40 Sodium 138 mmol/L (136-145) 11/06/22 21:40 Potassium 4.1 mmol/L (3.5-5.1) 11/06/22 21:40 Chloride 106 mmol/L (98-107) 11/06/22 21:40 Carbon Dioxide 23 mmol/L (22-29) 11/06/22 21:40 Anion Gap 13.1 (5-19) 11/06/22 21:40 BUN 22 mg/dL (8-23) 11/06/22 21:40 Creatinine 0.8 mg/dL (0.5-0.9) 11/06/22 21:40 GFR Calculation Not Reportable 11/06/22 21:40 Glucose 92 mg/dL (65-115) 11/06/22 21:40 Calculated Osmolality 289 mOsm/kg (285-295) 11/06/22 21:40 Lactate 0.7 mmol/L (0.5-2.2) 11/06/22 21:40 Calcium 8.5 mg/dL (8.5-10.5) 11/06/22 21:40 Total Bilirubin 0.3 mg/dL (0.15-1.2) 11/06/22 21:40 AST 18 U/L (0-32) 11/06/22 21:40 ALT 12 U/L (0-33) 11/06/22 21:40 Alkaline Phosphatase 73 U/L (35-105) 11/06/22 21:40 Troponin T Baseline 10 ng/L (0-10) 11/06/22 21:40 Troponin T 120 Minute 9.66 ng/L (0-10) 11/06/22 23:40 Delta Troponin T -0.44 ABS# (0-10) L 11/06/22 23:40 Total Protein 6.4 g/dL (6.6-8.7) L 11/06/22:40 Albumin 3.9 g/dL (3.5-5.2) 11/06/22 21:40 Globulin 2.5 g/dL (1.3-4.6) 11/06/22:40 Lipase 42 U/L (13-60) 11/06/22 21:40 Urine Color Yellow (Yellow) 11/06/22 21:00 Urine Appearance Cloudy (CLEAR) A 11/06/22 21:00 Urine pH 5 (5-7) 11/06/22 21:00 Ur Specific [place] 1.025 (1.005-1.030) 11/06/22 21:00 Urine Protein 3+ (Negative) H 11/06/22 21:00 Urine Glucose (UA) Norm (Normal) 11/06/22 21:00 Urine Ketones Negative (Negative) 11/06/22 21:00 Urine Blood 3+ (Negative) H 11/06/22 21:00 Urine Nitrate Positive (Negative) H 11/06/22 21:00 Urine Bilirubin Neg (Negative) 11/06/22 21:00 Urine Urobilinogen Norm mg/dL (Negative) 11/06/22 21:00 Ur Leukocyte Esterase 2+ (Negative) H 11/06/22 21:00 Urine RBC >100 /hpf (0-2) H 11/06/22 21:00 Urine WBC Too numerous to cnt /hpf (0-5) H 11/06/22 21:00 Ur Squamous Epith Cells 0-4 /hpf (0-5) H 11/06/22 21:00 Amorphous Sediment Not Reportable 11/06/22 21:00 Urine Bacteria 3+ /hpf (NONE) H 11/06/22 21:00 Discharge Plan Discharge Patient Disposition: Home Clinical Impression: Acute UTI, Vaginal pain, Constipation, Pulmonary nodule, Hernia, hiatal Condition: Stable Prescriptions: No Action nitroglycerin 0.4 mg tablet, sublingual 0.4 mg sublingual Q5M PRN (Reason: chest pain) Qty: 30 3RF Rx Instructions: do not exceed 3 doses per episode hydrochlorothiazide 25 mg tablet 25 mg PO DAILY Qty: 90 2RF hydrocortisone [Proctozone-HC] 2.5 % cream with perineal applicator 1 applic AR DAILY PRN (Reason: hemorrhoids) Qty: 30 0RF Rx Instructions: apply thing layer twice daily x2 weeks, than 1 daily x1 week, than every other day x 1 week alprazolam [Xanax] 0.25 mg tablet 0.25 mg PO .at bedtime PRN (Reason: anxiety) Qty: 30 3RF omeprazole 40 mg capsule,delayed release(DR/EC) 40 mg PO BID PRN (Reason: Acid Reflux) Qty: 60 4RF Celexa 40 mg tablet 20 mg PO DAILY PRN (Reason: mood) Qty: 30 3RF loratadine 10 mg tablet 10 mg PO DAILY Qty: 30 6RF celecoxib 200 mg capsule 200 mg PO DAILY Qty: 30 3RF irbesartan 300 mg tablet 300 mg PO DAILY Qty: 30 3RF Senna with Docusate Sodium 8.6-50 mg tablet 1 tab-cap PO BID Qty: 30 0RF Discharge Orders: Discharge ED (Routine); Ordered 11/07/22 Ordered By: Vargas Harrison Referrals: Ishaan Pal MD [Primary Care Provider] - Discharge Diet: Advance as tolerated and Clear Liquid Discharge Activity: Increase activity as tolerated Patient Instructions: Hiatal Hernia (ED), Pulmonary Nodules (ED), Urinary Tract Infection in Older Adults (ED) Activity Restrictions/Additional Instructions: Thank you for visiting the emergency department. You were seen and evaluated for vaginal pain. Most likely cause of your symptoms is related to urinary tract infection which will be treated with antibiotics. Incidentally on CT you were noted to have constipation, you may use xuzk-ryd-xvgcjxu medications for this. Additionally you have a pulmonary nodule which appears somewhat larger than previous, you should follow-up with your primary care provider for consideration of dedicated outpatient CT scan of the chest to further evaluate this. You may use tyey-vsh-jxnqnyn medications such as acetaminophen and ibuprofen for pain however please do not exceed the daily recommended dosage as listed on the packaging and please keep in mind that many namebrand medications contain the same active ingredients. Please avoid these medications if previously instructed to do so by another physician due to other underlying medical condition. Please ensure that you are staying hydrated. Return to the emergency department for fevers, uncontrolled pain, inability to tolerate medication, or anything else that you are concerned about and feel needs emergency department evaluation. Coding Level of Care Code ED Director Adult for Gustabo Pratt
[2022-11-06 21:37] LABS: Add Urine Microscopic? YES; Bilirubin Urine Neg (Negative); Blood Urine 3+ (Negative); Glucose Urine UA Norm (Normal); Ketones Urine Negative (Negative); Leukocyte Esterase Urine 2+ (Negative); Nitrate Urine Positive (Negative); Protein Urine 3+ (Negative); Specific Gravity, Urine 1.025 (1.005-1.030); Urine Appearance Cloudy (CLEAR); Urine Color Yellow (Yellow); Urobilinogen Urine Norm (Negative); pH Urine 5 (5-7)
[2022-11-06 21:38] LABS: RBC Urine >100 /hpf (0-2)
[2022-11-06 21:39] LABS: Bacteria Urine 3+ /hpf; Squamous Epithelial Cell Urine 0-4 /hpf (0-5); WBC Urine TOO NUMEROUS TO CNT /hpf (0-5)
[2022-11-06 21:41] LABS: Add Urine Culture? Yes
[2022-11-06 21:44] VITALS: RESP 16
[2022-11-06 21:44] LABS: Basophils % 0.3 %; Eosinophils # 0.1 10^3/uL (0.0-0.8); Eosinophils % 0.7 %; Hematocrit 37.4 % (37.0-47.0); Hemoglobin 11.9 g/dL (11.5-15.3); Lymphocytes # 2.2 10^3/uL (0.8-4.8); Lymphocytes % 32.3 %; Mean Corpuscular HGB Conc 31.8 g/dL (30.0-36.0); Mean Corpuscular Hemoglobin 30.6 pg (28.0-34.0); Mean Corpuscular Volume 96.1 fl (81-99); Mean Platelet Volume 9.5 fL (7.4-10.4); Monocytes # 0.5 10^3/uL (0.2-0.9); Monocytes % 6.9 %; Neutrophils # 4.06 10^3/uL (1.8-7.7); Neutrophils % 59.7 %; Nucleated Red Blood Cells % 0 %; Platelet Count 221 10^3/cmm (130-400); Red Blood Count 3.89 10^6/uL (4.1-5.3); Red Cell Distribution Width 13.6 % (12.1-15.1); White Blood Count 6.8 10^3/uL (4.0-10.0)
[2022-11-06] MEDS: morphine 4 mg/mL SDV 1 mL IVP (21:44)
[2022-11-06] MEDS: ondansetron 2 mg/ML SDV 2 mL 4 MG IVP (21:44)
[2022-11-06] MEDS: cefTRIAXone 1,000 MG in sodium chloride 0.9% (plus) 50 ML 100 MG IV (21:54)
[2022-11-06 22:01] LABS: Alanine Aminotransferase 12 U/L (0-33); Albumin Level 3.9 g/dL (3.5-5.2); Alkaline Phosphatase 73 U/L (35-105); Anion Gap 13.1 (5-19); Aspartate Amino Transferase 18 U/L (0-32); Blood Urea Nitrogen 22 mg/dL (8-23); Calcium 8.5 mg/dL (8.5-10.5); Carbon Dioxide 23 mmol/L (22-29); Chloride 106 mmol/L (98-107); Globulin 2.5 g/dL (1.3-4.6); Glucose 92 mg/dL (65-115); Lipase 42 U/L (13-60); Osmolality Calculated 289 mOsm/kg (285-295); Potassium 4.1 mmol/L (3.5-5.1); Sodium 138 mmol/L (136-145); Total Bilirubin 0.3 mg/dL (0.15-1.2); Total Protein 6.4 g/dL (6.6-8.7)
[2022-11-06 22:02] LABS: Lactate (Lactic Acid level) 0.7 mmol/L (0.5-2.2)
--- NOTE | 2022-11-06 22:03 | CTR_ITS ---
PROCEDURE INFORMATION: Exam: CT Abdomen And Pelvis With Contrast Exam date and time: 11/06/2022 10:44 PM Age: 87 years old Clinical indication: Abdominal pain; Periumbilical; Prior surgery; Surgery date: 6+ months; Surgery type: Partial cystectomy, bladder repair, sigmoidectomy; Additional info: Periumbilical and lower abdominal pain TECHNIQUE: Imaging protocol: Computed tomography of the abdomen and pelvis with contrast. Radiation optimization: All CT scans at this facility use at least one of these dose optimization techniques: automated exposure control; mA and/or kV adjustment per patient size (includes targeted exams where dose is matched to clinical indication); or iterative reconstruction. Contrast material: OMNI 350; Contrast volume: 75 ml; Contrast route: INTRAVENOUS (IV); REPORTING DATA: Count of CT and Cardiac NM exams in prior 12 months: This patient has received 0 known CTs and 0 known cardiac nuclear medicine studies in the 12 months prior to the current study. COMPARISON: CT abdomen pelvis wo/w [id number] 01/13/2021 10:09 AM RADIATION DOSE METRICS: Total DLP (mGy-cm): 372.48 FINDINGS: Lungs: Bibasilar atelectasis. Left lower lobe 15 mm nodule 6, somewhat more prominent compared to prior exam, consider further evaluation with dedicated nonemergent chest CT. Heart: Cardiomegaly. Coronary arteries: Coronary artery atherosclerotic calcifications. Diaphragm: Large hiatal hernia. Liver: Normal. No mass. Gallbladder and bile ducts: Normal. No calcified stones. No ductal dilation. Pancreas: Normal. No ductal dilation. Spleen: Normal. No splenomegaly. Adrenal glands: Normal. No mass. Kidneys and ureters: Right kidney cyst, negative for follow-up advised. Stomach and bowel: Prominent fluid in the small bowel without dilation may reflect an enteritis, in the appropriate clinical setting. Constipation. Appendix: No evidence of appendicitis. Intraperitoneal space: Unremarkable. No free air. No significant fluid collection. Vasculature: Unremarkable. No abdominal aortic aneurysm. Lymph nodes: Unremarkable. No enlarged lymph nodes. Urinary bladder: Unremarkable as visualized. Reproductive: Unremarkable as visualized. Bones/joints: Unremarkable. No acute fracture. Soft tissues: Unremarkable. CT/CT abdomen pelvis w con* [id number] IMPRESSION: 1. Prominent fluid in the small bowel without dilation may reflect an enteritis, in the appropriate clinical setting. 2. Constipation. 3. Coronary artery atherosclerotic calcifications. 4. Cardiomegaly. 5. Large hiatal hernia. 6. Bibasilar atelectasis. 7. Left lower lobe 15 mm nodule 6, somewhat more prominent compared to prior exam, consider further evaluation with dedicated nonemergent chest CT. 8. Right kidney cyst, negative for follow-up advised. COMMENTS: Consistent with the [place] [employer]'s Incidental Findings Committee white paper (J Am Rosemary Radiol 2018): Any incidental renal lesion less than 1 cm or classified as too small to characterize, or any incidental cystic renal lesion characterized as simple-appearing, is likely benign. No follow-up imaging is recommended for these lesions per consensus recommendations based on imaging criteria.
[2022-11-06] MEDS: iohexol 350 mg/mL 500 mL Btl (per mL) IV (22:28)
--- NOTE | 2022-11-06 22:57 | ECG_ITS ---
[facility] Test Date: 2022-11-06 Pat Name: Madi Morgan Department: Room: Gender: Female Barrel Finisher: : 1935 Requested By: Breezy Tran Order Number: [id number] Blake MD: Ga Almeida M.D. Measurements Intervals [place] Rate: 91 P: 47 [place]: 164 QRS: 88 QRSD: 138 T: 51 QT: 390 QTc: 481 Interpretive Statements SINUS RHYTHM RIGHT BUNDLE BRANCH BLOCK [120+ ms QRS DURATION, UPRIGHT V1, 40+ ms S IN I/aVL/V4/V5/V6] ST DEPRESSION, CONSIDER SUBENDOCARDIAL INJURY [0.1+ mV ST DEPRESSION] Compared to ECG 02/09/2021 10:39:01 ST (T wave) deviation now present Electronically Signed On 11-07-2022 14:28:26 CDT by Ga Almeida M.D. [email or web address]
[2022-11-06] MEDS: lidocaine 2% viscous 15 ML, aluminum-mag hydrox-simethicon 30 ML, sucralfate oral liq 1 GM PO (23:21)
[2022-11-06] MEDS: famotidine 20 mg/2 mL INJ 40 MG IVP (23:22)
[2022-11-06] MEDS: diphenhydrAMINE 50 mg/mL SDV 1mL 12.5 MG IVP (23:22)
[2022-11-06 23:27] LABS: Troponin(5th) Baseline 10 ng/L (0-10)
[2022-11-06 23:36] VITALS: BP 160/62; PULSE 89; RESP 15; O2SAT 90
[2022-11-07 00:03] LABS: Troponin 5 2HR 9.66 ng/L (0-10)
[2022-11-07 00:24] VITALS: BP 160/62; PULSE 89; RESP 15; O2SAT 90
[2022-11-07 00:42] LABS: Troponin 5 2HR Delta -0.44 ABS# (0-10)
== END 2022-11-07 00:25 | disposition home or self-care (01) ==
PROVIDERS: Emergency Medicine; Emergency Provider Emergency Medicine; PCP Internal Medicine
DX: N39.0 Urinary tract infection, site not specified (principal); K59.00 Constipation, unspecified; R10.2 Pelvic and perineal pain; K44.9 Diaphragmatic hernia without obstruction or gangrene; R91.1 Solitary pulmonary nodule
CPT/HCPCS: 36415; 74177; 80053; 81001; 83605; 83690; 84484; 85025; 87077; 87086; 87186; 93005; 96365; 96375; 99285; J0696; J1200; J1980; J2270; J2405; J3490; Q9967

== ENCOUNTER 2022-12-01 09:08 | Outpatient (CLI) | payer MEDICARE, OTHER, SELFPAY ==
--- NOTE | 2022-12-01 | ECG_ITS ---
[facility] Test Date: 2022-12-01 Pat Name: Madi Morgan Department: Room: Gender: Female Lease Administrator: Lisy Laguerre : 1935 Requested By: Ga Almeida Order Number: [id number] Blake MD: Miguel Alvarez M.D. Interpretive Statements NAME OF STUDY: LEXISCAN SESTAMIBI STRESS TEST INDICATION: [Chest Pain, ] Procedure: At the baseline, the blood pressure was 209/64 mmHg with a heart rate of 71 bpm. The electrocardiogram showed normal sinus rhythm, right bundle branch block with no significant ST-T wave changes. The Lexiscan was infused over a period of 20 seconds. A total of 0.4 mg of Lexiscan was infused. The stress phase was continued for a total of 5 minutes. Heart rate was at the end of stress phase was 94 bpm and a blood pressure of 199/74 mmHg. The EKG at the peak infusion revealed normal sinus rhythm with no significant ST-T wave changes. Sestamibi was injected 20 seconds after the Lexiscan infusion. Blood pressure at the end of recovery phase was 198/78 mmHg with a heart rate of 90 bpm. Conclusion: 1. Normal EKG response to Lexiscan infusion 2. No Lexiscan induced chest pain or cardiac arrhythmia. 3. Normal blood pressure and heart rate response. 4. Sestamibi/sestamibi perfusion scan pending; see separate report. Electronically Signed On 12-03-2022 21:31:21 CDT by Miguel Alvarez M.D. [email or web address]
[2022-12-01 09:25] VITALS: BMI 22.3
--- NOTE | 2022-12-01 09:38 | NMCV_ITS ---
NM dominik perf SPECT r/s* [id number] Madi Morgan Age: 87 Gender: F : 1935 Exam Date: 12/01/2022 10:43 Ordering Phys: Ga Almeida MD ([email or web address]) Technologist: ROMINA Diamond Exam Location: [facility] Indications: CHEST PAIN STRESS TEST Please see separate stress test report in [facility] for full findings IMAGE PROTOCOL Rest/Stress 1 Lexiscan Day Radiopharmaceutical Dose (mCi) Administration Site Administered by Rest: Tc-99m 11.0 IV ROMINA Finn Sestamibi Stress:Tc-99m 32.2 IV ROMINA Finn Sestamibi Rest: 01-Dec-2022 60 Discovery 630 Stress: 01-Dec-2022 30 Discovery 630 0.4mg Lexiscan. Supine position only as patient was unable to lay prone. SPECT RESULTS Technical Quality: Excellent Raw Data Analysis: Normal Image Corrections: No attenuation or motion correction applied Summed Stress Score: 7 Summed Rest Score: 5 Summed Difference Score: 4 PERFUSION FINDINGS There is a small sized, partially reversible perfusion defect noted in the apical, apical lateral wall. This is consistent with small sized prior infarct with fred-infarct ischemia in these territories. FUNCTIONAL RESULTS (calculated via Gated SPECT) Stress Image LV EF (%): 76 Stress EDV (mL):74 TID: 1.24 Stress ESV (mL):18 FUNCTIONAL FINDINGS: There is normal left ventricular systolic function. TID ratio is elevated IMPRESSIONS 1. 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 2. LV systolic function is normal 3. TID ratio is elevated that can represent subendocardial ischemia Miguel Alvarez MD (Electronically Signed) Final Date: 01 Dec 2022 17:15 S
[2022-12-01] MEDS: regadenoson 0.4 Mg/5 ml Syringe IVP (11:09)
[2022-12-01] MEDS: aminophylline 25 mg/mL SDV 10 mL IVP (11:30)
[2022-12-01 11:40] VITALS: BP 198/78; PULSE 90
== END 2022-12-01 09:09 | disposition home or self-care (01) ==
LOC: CDL 09:11
PROVIDERS: PCP Internal Medicine; Visit Provider Internal Medicine Cardiovascular Disease
DX: R07.9 Chest pain, unspecified (principal)
CPT/HCPCS: 36415; 78452; 93017; 96374; 96375; A9500; J0280; J2785

== ENCOUNTER → 2022-12-09 09:49 | Outpatient (BNVA) | payer MEDICARE, OTHER, SELFPAY | PROVIDERS: PCP Internal Medicine; Visit Provider Nurse Practitioner Family | DX: R94.39 Abnormal result of other cardiovascular function study (principal) | CPT/HCPCS: 99214 ==

== ENCOUNTER 2022-12-28 07:13 | Day surgery (SDC) | payer MEDICARE, OTHER, SELFPAY ==
[2022-12-27 15:45] LABS: Basophils % 0.4 %; Eosinophils # 0.1 10^3/uL (0.0-0.8); Eosinophils % 0.7 %; Hematocrit 39.7 % (37.0-47.0); Hemoglobin 13.2 g/dL (11.5-15.3); Lymphocytes # 2.3 10^3/uL (0.8-4.8); Lymphocytes % 33.7 %; Mean Corpuscular HGB Conc 33.2 g/dL (30.0-36.0); Mean Corpuscular Hemoglobin 31.7 pg (28.0-34.0); Mean Corpuscular Volume 95.4 fl (81-99); Mean Platelet Volume 9.7 fL (7.4-10.4); Monocytes # 0.5 10^3/uL (0.2-0.9); Monocytes % 6.5 %; Neutrophils # 4.02 10^3/uL (1.8-7.7); Neutrophils % 58.3 %; Nucleated Red Blood Cells % 0 %; Platelet Count 288 10^3/cmm (130-400); Red Blood Count 4.16 10^6/uL (4.1-5.3); Red Cell Distribution Width 12.9 % (12.1-15.1); White Blood Count 6.9 10^3/uL (4.0-10.0)
[2022-12-27 16:11] LABS: INR 1.03 (0.83-1.21); Prothrombin Time (Patient) 13.8 Seconds (12.0-15.1)
[2022-12-27 16:17] LABS: Anion Gap 15.8 (5-19); Blood Urea Nitrogen 24 mg/dL (8-23); Calcium 9.4 mg/dL (8.5-10.5); Carbon Dioxide 25 mmol/L (22-29); Chloride 100 mmol/L (98-107); Glucose 88 mg/dL (65-115); NT Pro B Type Natriuretic Pept 254 pg/mL (0-450); Osmolality Calculated 287 mOsm/kg (285-295); Potassium 3.8 mmol/L (3.5-5.1); Sodium 137 mmol/L (136-145)
--- NOTE | 2022-12-28 07:30 | XACV_ITS ---
Exam Room: [facility] Ht: 163 cm Wt: 60 kg BSA: 1.66 m2 Gender: Female : 1935 Any Known Allergies: Other Exam Priority: Routine Procedure(s): Procedure Description: Diagnostic procedure Procedure Description: Coronary Angiography Procedure Description: Pressure Wire Diagnostic Cath Status: Elective Diagnostic Findings * INDICATION: Chest pain/abnormal stress test. * Left Main has mild disease in distal vessel. * Left Anterior Descending has severe 70% ostial lesion. This is followed by an aneurysmal segment. Vessel is diffusely diseased downstream however no critical blockages.. * Circumflex has no significant disease. * RCA is a tortuous vessel * mid Right Coronary Artery: Critical 99% stenosis, RIYA: 3 flow. * Proximal Left Anterior Descending: obstructive 70% stenosis, RIYA: 3 flow. * Coronary angiography shows right dominance. Interventional Findings * Procedure detail: After diagnostic catheterization, we decided to perform IFR of ostial LAD. XB 3.0 guide catheter was used to engage the left main artery. IV heparin was administered to maintain anticoagulation. We crossed the stenotic segment with IFR wire after normalization. iFR value of 0.44 was obtained. This was highly ischemic. iFR pullback was also performed which gave a value of 0.41 with a gradient at ostial LAD. iFR wire was removed and final angiogram was performed. Patient left the Medieval English Literature Professor in a stable condition.. Conclusions 1. Critical 2. mid RCA stenosis. 3. Severe ostial LAD stenosis confirmed with IFR value of 0.44 4. .. Recommendations * Given complex calcified lesions, we decided to discuss the situation with patient and family before proceeding with intervention. Options of CT surgery evaluation versus staged PCI of RCA and LAD discussed. Given patient's age, patient and family have decided to proceed with PCI. We will staged the procedure in 1 week. She will need calcium modification at the intravascular lithotripsy versus arthrectomy.. * We will initiate Plavix today. Pressures Phase:Rest AO : 109 / 66 ( 88 ) @ 10:03:00 AM 122 / 61 ( 90 ) @ 10:11:00 AM 163 / 57 ( 100 ) @ 10:14:00 AM Clinical Evaluation EBL: 5mL-10mL Procedural Details Procedure Consent Obtained. Pre-Procedure Time Out. Identified patient by full name and date of as verbalized by the patient/guarantor. Does the consent match the physician's order: Yes. Accurate & Complete Informed Consent: Yes. Inpatient/Outpatient History & Physical on Chart: Yes. If H&P is completed, is and addenduem needed: No; If yes, is the addendum complete: No. Visualize and Verify Site with Patient/Guarantor: N/A. Relevant Radiology Images available: N/A. The risks, benefits, and alternatives of sedation and/or procedure were discussed by physician. The patient agrees to continue. Procedure started. [facility] Clinical Fraility Score: 4: Vulnerable. Medieval English Literature Professor Indications: Worsening Angina. Chest Pain Symptom Assessment: Typical Angina Symptoms. Correct patient, site and procedure confirmed by cath team. Current diagnosis: Chest Pain, Abnormal stress test. PERRLA. Strong, equal hand garbage stoker bilaterally. Lungs clear x 5 lobes. IV Site on Arrival: 20 gauge in the left anticubital. IV Fluids: 0.9% NaCl at 75ml/hr. 0 mL infused prior to pit laborer. Pre Procedural Pulses: bilateral radial was 3+. Pre Procedural Pulses: bilateral posterior tibial was 2+. Pre Procedural Pulses: bilateral dorsalis pedis was 2+. Oxygen started at 2liters/min via nasal canula. right radial was prepped with chloroprep then draped in the usual sterile fashion. right groin was prepped with chloroprep then draped in the usual sterile fashion. Baseline sample Acquired. HR: 63 BPM. Physician notified. Physician arrived. Admit Source: Out Patient. Physician scrubbed in. Immediate Pre-Procedure Time Out. Correct Patient: Yes; Correct Procedure: Yes; Correct Site: Yes; Correct Patient Position: Yes; Correct Supplies: Yes; Dried Flammable Prep: Yes; Blood Products Available: No;. Lidocaine 1% infiltrated to the right radial. Ultrasound obtained to assist with arterial access. Arterial access obtained. A 5 indian TIG catheter in over wire. Multiple views taken of left coronary artery. Catheter redirected to the RCA. Multiple views taken of right coronary artery. Catheter removed over the exchange wire. 6 indian XB 3 guide catheter was inserted over the wire. Omnipressure guidewire advanced through guide catheter to lesion in ostial LAD. Add Inventory: Co-tugboat pilot, endoflator. iFR wire out to reshape. Omnipressure guidewire advanced through guide catheter to lesion in ostial LAD. iFR wire advanced across lesion, seated in distal LAD. iFR results of ostial LAD 0.44 mmHg. iFR pressure wire out. Guide catheter out. A TR Band was successful obtaining hemostatsis at the Right Radial artery insertion site. Post Procedure: Pulses reassessed and unchanged. PERRLA. Strong, equal hand garbage stoker bilaterally. No VTE prophylaxis required. Medication's Wasted: Lidocaine 1% = 2 mL. Medication's Wasted: Nitro = 49.8 mg. Medication's Wasted: Other = Fentanyl 50mcg, Versed 1 mg. Total IV fluids: 45 mL. Post-op diagnosis: Severe multivessel CAD. Complications: None. Estimated blood loss: 5mL-10mL. Responsiveness - Normal response to verbal stimuli; alert and oriented, PERRLA. Airway - Unaffected, no intervention required; spontaneous ventilation. Circulation: W/N/L, pulses unchanged. Nausea/Vomiting: No. Procedure completed. Patient transferred by wheelchair to 1st floor. Vital chart was stopped. Access Site Site: Right Radial artery Sheath Size: 6 Fr Hemostasis Method: TR Band Hemostasis Success: Successful Procedure Medications Start: 8:54 AM Stop: 8:54 AM Medication: Versed Amount: 1 mg Route: I.V. Start: 8:54 AM Stop: 8:54 AM Medication: Fentanyl Amount: 50 mcg Route: I.V. Start: 9:02 AM Stop: 9:02 AM Medication: Nitrogylcerin Amount: 200 mcg Route: I.A. Start: 9:03 AM Stop: 9:03 AM Medication: Heparin Amount: 4000 units Route: I.V. Start: 9:10 AM Stop: 9:10 AM Medication: Heparin Amount: 2000 units Route: I.V. I, the attending physician, have reviewed and verified all procedure medications. Yes, all medications given per verbal order History/Risk Factors Hypertension: Yes Dyslipidemia: No Peripheral Arterial Disease (PAD): No Myocardial Infarction ([place]): No Obesity: No Renal Disease: No Tobacco Use: Never Prior Interventions PCI: No CABG: No Valve Surgery: No Report Signatures Finalized by Miguel Alvarez MD on 12/29/2022 06:29 PM
[2022-12-28] MEDS: aspirin 325 mg Tablet PO (07:35)
[2022-12-28] MEDS: diphenhydrAMINE 50 mg Capsule PO (07:35)
[2022-12-28 08:15] VITALS: BP 185/75; PULSE 75; RESP 16; TEMP 37.1; O2SAT 99; BMI 22.8
--- NOTE | 2022-12-28 08:53 | W.PM.OPSUD ---
Surgery/Procedure H&P Update DATE OF PROCEDURE: December 28, 2022 DATE H&P PERFORMED: 12/09/22 H&P UPDATE INFORMATION: I have reviewed H&P completed within last 30 days, I have examined patient prior to procedure and No changes to prior documentation PREOP DIAGNOSIS: Chest pain/abnormal stress test PRIMARY INDICATION FOR PROCEDURE: Chest pain/abnormal stress test PLANNED PROCEDURE: Operation Date: 12/28/22 08:30 Proposed Procedures p Cardiac Catheterization 80993 94.39 R07.9(Left) - Miguel Alvarez M.D PATIENT REASSESSED PRIOR TO SEDATION, WITH NO CHANGE NOTED: Yes PHYSICAL EXAM: alert, oriented x 3, clear to auscultation bilaterally and regular rate & rhythm AIRWAY EVAL/ANESTHESIA PLAN: normal airway, ASA III, Local Anesthesia, Risks, benefits & alternatives of sedation and/or procedure discussed and Patient agrees to continue as planned ADDITIONAL INFORMATION: Moderate sedation
[2022-12-28 10:28] LABS: Basophils % 0.4 %; Eosinophils % 0.5 %; Hematocrit 40.3 % (37.0-47.0); Hemoglobin 12.7 g/dL (11.5-15.3); Lymphocytes # 2.7 10^3/uL (0.8-4.8); Lymphocytes % 37.3 %; Mean Corpuscular HGB Conc 31.5 g/dL (30.0-36.0); Mean Corpuscular Volume 98.3 fl (81-99); Mean Platelet Volume 9.7 fL (7.4-10.4); Monocytes # 0.4 10^3/uL (0.2-0.9); Monocytes % 5.3 %; Neutrophils % 56.2 %; Nucleated Red Blood Cells % 0 %; Platelet Count 255 10^3/cmm (130-400); Red Cell Distribution Width 12.7 % (12.1-15.1); White Blood Count 7.3 10^3/uL (4.0-10.0)
[2022-12-28 10:47] LABS: Anion Gap 14.1 (5-19); Blood Urea Nitrogen 22 mg/dL (8-23); Calcium 8.9 mg/dL (8.5-10.5); Carbon Dioxide 26 mmol/L (22-29); Chloride 100 mmol/L (98-107); Glucose 96 mg/dL (65-115); Osmolality Calculated 285 mOsm/kg (285-295); Potassium 4.1 mmol/L (3.5-5.1); Sodium 136 mmol/L (136-145)
== END 2022-12-28 17:39 | disposition home or self-care (01) ==
LOC: CCL 07:14 → CSU 08:05
PROVIDERS: Nurse Practitioner Family; PCP Internal Medicine; Visit Provider Internal Medicine
DX: I25.10 Atherosclerotic heart disease of native coronary artery without angina pectoris (principal); I10 Essential (primary) hypertension; Z82.49 Family history of ischemic heart disease and other diseases of the circulatory system
CPT/HCPCS: 36415; 80048; 83880; 85025; 85610; 93454; 93571; 96365; 99152; 99153; C1769; C1887; C1894; G0378; J1644; J2250; J3010; J3490; J7030; Q0163; Q9967

== ENCOUNTER 2023-01-05 10:30 | Observation (INO) | payer MEDICARE, OTHER, SELFPAY ==
[2023-01-05] VITALS (14 sets, daily range): BP systolic 127–189; BP diastolic 59–71; PULSE 0–95; RESP 14–21; TEMP 36–37; O2SAT 90–98; BMI 22.8
[2023-01-05] MEDS: aspirin 325 mg Tablet PO (07:30)
[2023-01-05] MEDS: diphenhydrAMINE 50 mg Capsule PO (07:30)
--- NOTE | 2023-01-05 07:30 | XACV_ITS ---
Exam Room: 2 Ht: 163 cm Wt: 60 kg BSA: 1.66 m2 Gender: Female : 1935 Any Known Allergies: Other Exam Priority: Routine Procedure(s): Procedure Description: Diagnostic procedure Procedure Description: PCI procedure Procedure Description: Drug Eluting Coronary Stent Procedure Description: PTCA Procedure Description: Miscellaneous Procedure Description: ACT Diagnostic Cath Status: Elective Diagnostic Findings * INDICATION: Staged PCI of ostial LAD and mid RCA stenosis. * Ostial Left Anterior Descending: severe 70% stenosis, RIYA: 3 flow. This was confirmed to be significantly ischemic on initial diagnostic study with iFR. * Circumflex has no significant disease. * Left Main has no disease. * Mid Right Coronary Artery to Mid Right Coronary Artery: critical 95% stenosis, RIYA: 3 flow. * Coronary angiography shows right dominance. PCI Status: Elective PCI Indication: Staged PCI Interventional Findings * Procedure detail: We engaged RCA with AL 0.75 guide catheter. IV heparin was administered to maintain anticoagulation. 0.014 run-through guidewire was used to cross the stenosis and was put in distal vessel. We predilated the stenosis with 2.25 x12mm semicompliant balloon. This was followed by intravascular lithotripsy therapy with a 2.5 x 12 mm shockwave balloon. 30 pulses were delivered. We then placed 2.75 x 15 mm resolute Reanna drug-eluting stent. At this time final angiogram was performed that showed excellent stent expansion, no residual stenosis and RIYA-3 flow. We then turned our attention to ostial LAD stenosis. XB 3.5 guide catheter was used to engage the left main artery. 0.014 run-through guidewire was used to cross the stenosis and was put in the distal vessel. We performed intravascular lithotripsy with 3.0 x 12 mm shockwave balloon. 40 pulses were delivered. Then placed 3.5 x 12 mm resolute Baltic drug-eluting stent. At this time final angiogram was performed that showed excellent stent expansion, no residual stenosis and RIYA-3 flow. Guidewire and guide catheter were removed. Patient left the Pr Specialist in a stable condition.. * Proximal Left Anterior Descendin% stenosis treated with a 3.0x12 Shockwave, and MDT R REANNA 3.5X12 LISBETH. 0% residual stenosis, RIYA: 3 flow. * Mid Right Coronary Artery to Mid Right Coronary Artery: 95% stenosis treated with a AB TREK 2.25X12 RX BALLOON, Shockwave 2.5x12, and MDT R REANNA 2.75X15 LISBETH. 0% residual stenosis, RIYA: 3 flow. Conclusions 1. Critical mid RCA stenosis s/p successful revascularization with intravascular lithotripsy 2. and 3. placement of 1 stent Severe ostial LAD stenosis. S/p successful revascularization with intravascular lithotripsy and placement of 1 stent. 4. Proximal Left Anterior Descending was treated with a Balloon, and Drug Eluting Stent. 5. Mid Right Coronary Artery to Mid Right Coronary Artery was treated with a Balloon, Balloon, and Drug Eluting Stent. Recommendations * Dual antiplatelet therapy with aspirin and Plavix for at least 1 year. * High intensity statin therapy. * Outpatient cardiology follow up in 4 weeks. Interventional RX Recommendation: PCI w/o planned CABG Diagnostic RX Recommendation: PCI w/o planned CABG Anticoagulation: Heparin Pressures Phase:Rest AO : 139 / 58 ( 97 ) @ 10:22:00 AM 147 / 46 ( 87 ) @ 10:25:00 AM 130 / 86 ( 107 ) @ 10:31:00 AM 181 / 91 ( 135 ) @ 10:41:00 AM 173 / 91 ( 131 ) @ 10:43:00 AM 80 / 44 ( 62 ) @ 10:53:00 AM Clinical Evaluation EBL: 5mL-10mL Procedural Details Procedure Consent Obtained. Pre-Procedure Time Out. Identified patient by full name and date of as verbalized by the patient/guarantor. Does the consent match the physician's order: Yes. Accurate & Complete Informed Consent: Yes. Inpatient/Outpatient History & Physical on Chart: Yes. If H&P is completed, is and addenduem needed: No; If yes, is the addendum complete: N/A. Visualize and Verify Site with Patient/Guarantor: N/A. Relevant Radiology Images available: Yes. Pre-op teaching completed and patient verbalized understanding. The risks, benefits, and alternatives of sedation and/or procedure were discussed by physician. The patient agrees to continue. Procedure started. Physician arrived. [facility] Clinical Fraility Score: 3: Managing Well. Pr Specialist Indications: Stable Known CAD. Chest Pain Symptom Assessment: Atypical Angina. Correct patient, site and procedure confirmed by cath team. PERRLA. Strong, equal hand small engine technician bilaterally. Lungs clear x 5 lobes. IV Site on Arrival: 20 gauge in the left anticubital. IV Fluids: 0.9% NaCl at KVO. 0 mL infused prior to labor mediator. Pre Procedural Pulses: bilateral dorsalis pedis was 2+. Pre Procedural Pulses: bilateral posterior tibial was 2+. Oxygen started at 2liters/min via nasal canula. right groin was prepped with chloroprep then draped in the usual sterile fashion. Baseline sample Acquired. HR: 68 BPM. Physician scrubbed in. Immediate Pre-Procedure Time Out. Correct Patient: Yes; Correct Procedure: Yes; Correct Site: Yes; Correct Patient Position: Yes; Correct Supplies: Yes; Dried Flammable Prep: Yes; Blood Products Available: N/A;. Lidocaine 1% infiltrated to the right groin. Arterial access obtained. 6 czech AL 0.75 guide catheter was inserted over the wire. Runthrough guidewire was advanced through the guide catheter to lesion in the mid RCA. Inflation number : 1 A AB TREK 2.25X12 RX BALLOON was prepped and advanced across the Mid RCA , then inflated to 12 DEVANG for 0:14 seconds. Balloon out. ACT drawn. Results out of range seconds. Therapeutic limits - pre-heparin administration 90-150 seconds and monitoring heparin during a vascular procedure >250 seconds. 2.5x12mm Shockwave lithotripsy balloon inserted OTW and advanced to the mid RCA. Inflation number : 2 A Shockwave 2.5x12 was prepped and advanced across the Mid RCA , then inflated to 4 DEVANG for 0:25 seconds. Inflation number: 3 The Shockwave 2.5x12 was reinflated across the Mid RCA, to 4 DEVANG for 0:16 seconds. Inflation number: 4 The Shockwave 2.5x12 was reinflated across the Mid RCA, to 4 DEVANG for 0:21 seconds. Balloon out. Results checked. Inflation Number : 5 A MDT R REANNA 2.75X15 LISBETH -Lot Number# _[id number] EXP: 09/13/2024 was prepped and advanced across the Mid RCA. The stent was deployed at 12 DEVANG for 0:19 seconds. Stent balloon out over wire. Results checked. Wire out. Guide catheter out. 6 czech CLS 3.5 guide catheter was inserted over the wire. ACT drawn. Results 283 seconds. Therapeutic limits - pre-heparin administration 90-150 seconds and monitoring heparin during a vascular procedure >250 seconds. Runthrough guidewire was advanced through the guide catheter to lesion in the prox LAD. Inflation number : 1 A 3.0x12 Shockwave was prepped and advanced across the Prox LAD , then inflated to 4 DEVANG for 0:23 seconds. Inflation number: 2 The 3.0x12 Shockwave was reinflated across the Prox LAD, to 4 DEVANG for 0:14 seconds. Inflation number: 3 The 3.0x12 Shockwave was reinflated across the Prox LAD, to 4 DEVANG for 0:19 seconds. Balloon out. Results checked. Inflation Number : 4 A MDT R REANNA 3.5X12 LISBETH -Lot Number# _[id number] EXP: 08/28/2024 was prepped and advanced across the Prox LAD. The stent was deployed at 12 DEVANG for 0:19 seconds. Stent balloon out over wire. Results checked. Wire out. Results checked. ACT drawn. Results out of range seconds. Therapeutic limits - pre-heparin administration 90-150 seconds and monitoring heparin during a vascular procedure >250 seconds. Guide catheter out. A Right femoral angiogram was performed to determine safe placement of closure device. Lidocaine 1% infiltrated to the right groin. Angioseal placed without complications. No signs or symptoms of hematoma noted. Sterile dressing applied per usual sterile fashion. A Angio-Seal VIP ([facility] [facility]el) was successful obtaining hemostatsis at the Right Femoral artery insertion site. Post Procedure: Pulses reassessed and unchanged. PERRLA. Strong, equal hand small engine technician bilaterally. No VTE prophylaxis required. Medication's Wasted: Nitro = 50 mcg. Medication's Wasted: Heparin = 3000 units. Medication's Wasted: Other = Versed 1 mg. Medication's Wasted: Other = Hydralazine 10 mg. Medication's Wasted: Other = Fentanyl 75 mcg. Total IV fluids: 65 mL. PCI Indication: CAD (without ischemic symptoms). Complications: None. Vital chart was stopped. Estimated blood loss: 5mL-10mL. Responsiveness - Normal response to verbal stimuli; alert and oriented, PERRLA. Airway - Unaffected, no intervention required; spontaneous ventilation. Circulation: W/N/L, pulses unchanged. Nausea/Vomiting: No. Procedure completed. Patient transferred by bed to 1st floor. Access Site Site: Right Femoral artery Sheath Size: 6 Fr Hemostasis Method: Angio-Seal VIP ([facility]. Jamel) Hemostasis Success: Successful Procedure Medications Start: 9:07 AM Stop: 9:07 AM Medication: Plavix Amount: 300 mg Route: P.O. Start: 9:10 AM Stop: 9:10 AM Medication: Versed Amount: 1 mg Route: I.V. Start: 9:10 AM Stop: 9:10 AM Medication: Fentanyl Amount: 50 mcg Route: I.V. Start: 9:15 AM Stop: 9:15 AM Medication: Versed 1 mg and Fentanyl 25 mcg Amount: 1 Route: I.V. Start: 9:19 AM Stop: 9:19 AM Medication: Heparin Amount: 6000 units Route: I.V. Start: 9:32 AM Stop: 9:32 AM Medication: Fentanyl Amount: 25 mcg Route: I.V. Start: 9:42 AM Stop: 9:42 AM Medication: Heparin Amount: 1000 units Route: I.V. Start: 9:45 AM Stop: 9:45 AM Medication: Versed Amount: 1 mg Route: I.V. Start: 9:49 AM Stop: 9:49 AM Medication: Fentanyl Amount: 25 mcg Route: I.V. Start: 9:50 AM Stop: 9:50 AM Medication: Heparin Amount: 1000 units Route: I.V. Start: 10:00 AM Stop: 10:00 AM Medication: Hydralazine Amount: 10 mg Route: I.V. I, the attending physician, have reviewed and verified all procedure medications. Yes, all medications given per verbal order History/Risk Factors Hypertension: Yes Dyslipidemia: No Peripheral Arterial Disease (PAD): No Myocardial Infarction ([place]): No Obesity: No Renal Disease: No Tobacco Use: Never Prior Interventions PCI: Yes CABG: No Valve Surgery: No Date of PCI: 12/28/2022 Report Signatures Finalized by Miguel Alvarez MD on 01/10/2023 08:05 AM
[2023-01-05 08:04] LABS: Basophils % 0.4 %; Eosinophils # 0.1 10^3/uL (0.0-0.8); Hematocrit 38.7 % (37.0-47.0); Hemoglobin 12.6 g/dL (11.5-15.3); Lymphocytes # 2.1 10^3/uL (0.8-4.8); Lymphocytes % 28.5 %; Mean Corpuscular HGB Conc 32.6 g/dL (30.0-36.0); Mean Corpuscular Hemoglobin 31.9 pg (28.0-34.0); Mean Platelet Volume 9.5 fL (7.4-10.4); Monocytes # 0.5 10^3/uL (0.2-0.9); Monocytes % 6.8 %; Neutrophils # 4.56 10^3/uL (1.8-7.7); Nucleated Red Blood Cells % 0 %; Platelet Count 242 10^3/cmm (130-400); Red Blood Count 3.95 10^6/uL (4.1-5.3); Red Cell Distribution Width 12.8 % (12.1-15.1); White Blood Count 7.2 10^3/uL (4.0-10.0)
[2023-01-05 08:15] LABS: Anion Gap 14.5 (5-19); Blood Urea Nitrogen 14 mg/dL (8-23); Calcium 8.9 mg/dL (8.5-10.5); Carbon Dioxide 25 mmol/L (22-29); Chloride 105 mmol/L (98-107); Glucose 92 mg/dL (65-115); Osmolality Calculated 292 mOsm/kg (285-295); Potassium 3.5 mmol/L (3.5-5.1); Sodium 141 mmol/L (136-145)
--- NOTE | 2023-01-05 09:07 | W.PM.OPSUD ---
Surgery/Procedure H&P Update DATE OF PROCEDURE: January 05, 2023 DATE H&P PERFORMED: 12/09/22 H&P UPDATE INFORMATION: I have reviewed H&P completed within last 30 days, I have examined patient prior to procedure and No changes to prior documentation PREOP DIAGNOSIS: Severe mid RCA stenosis. Severe ostial LAD stenosis. PRIMARY INDICATION FOR PROCEDURE: Severe mid RCA stenosis. Severe ostial LAD stenosis. PLANNED PROCEDURE: Operation Date: 01/05/23 08:30 Proposed Procedures p [facility] w/wo [id number] staged PCI R94.39, R07.9(Left) - Miguel Alvarez M.D Staged PCI of mid RCA and ostial LAD. PATIENT REASSESSED PRIOR TO SEDATION, WITH NO CHANGE NOTED: Yes PHYSICAL EXAM: alert, oriented x 3, clear to auscultation bilaterally and regular rate & rhythm AIRWAY EVAL/ANESTHESIA PLAN: normal airway, ASA III, Local Anesthesia, Risks, benefits & alternatives of sedation and/or procedure discussed and Patient agrees to continue as planned ADDITIONAL INFORMATION: Moderate sedation
[2023-01-05] MEDS: sodium chloride 0.9% 1,000 ML 100 ML IV (11:37)
--- NOTE | 2023-01-05 15:08 | PC.NURSE ---
Patient resting in bed. Groin site noted to be oozing bright red blood, soaking dressing. Manual pressure held for 5 mins, and redressed with another dressing. Site now clean dry and intact, no more oozing present
[2023-01-05] MEDS: atorvastatin 40 mg Tablet 20 MG PO (20:40)
[2023-01-06 01:02] VITALS: BP 138/65; PULSE 83; RESP 19; TEMP 37.2; O2SAT 96
[2023-01-06 02:31] LABS: Basophils % 0.5 %; Eosinophils # 0.1 10^3/uL (0.0-0.8); Eosinophils % 1.4 %; Hematocrit 33.5 % (37.0-47.0); Hemoglobin 10.9 g/dL (11.5-15.3); Lymphocytes # 1.9 10^3/uL (0.8-4.8); Lymphocytes % 28.5 %; Mean Corpuscular HGB Conc 32.5 g/dL (30.0-36.0); Mean Corpuscular Hemoglobin 31.7 pg (28.0-34.0); Mean Corpuscular Volume 97.4 fl (81-99); Mean Platelet Volume 9.8 fL (7.4-10.4); Monocytes # 0.5 10^3/uL (0.2-0.9); Monocytes % 7.4 %; Neutrophils # 4.01 10^3/uL (1.8-7.7); Neutrophils % 61.7 %; Nucleated Red Blood Cells % 0 %; Platelet Count 207 10^3/cmm (130-400); Red Blood Count 3.44 10^6/uL (4.1-5.3); Red Cell Distribution Width 13.1 % (12.1-15.1); White Blood Count 6.5 10^3/uL (4.0-10.0)
[2023-01-06 02:53] LABS: Anion Gap 12.5 (5-19); Blood Urea Nitrogen 13 mg/dL (8-23); Calcium 8.4 mg/dL (8.5-10.5); Carbon Dioxide 23 mmol/L (22-29); Chloride 108 mmol/L (98-107); Glucose 80 mg/dL (65-115); Osmolality Calculated 289 mOsm/kg (285-295); Potassium 3.5 mmol/L (3.5-5.1); Sodium 140 mmol/L (136-145)
[2023-01-06 04:00] VITALS: BP 150/60; PULSE 68; RESP 18; O2SAT 95
[2023-01-06 05:12] VITALS: PULSE 65
--- NOTE | 2023-01-06 07:39 | PM.DCS ---
Discharge Providers Date of Admission: 01/05/23 10:30 Date of Discharge: January 06, 2023 Attending Provider at Admission: Miguel Alvarez M.D Attending Provider at Discharge: Miguel Alvarez M.D Primary Care Provider: Ishaan Pal MD Reason for Visit Reason for Visit: R94.39 Brief History: 87-year-old woman presented for staged PCI for RCA and ostial LAD. Hospital Course Hospital Course She underwent successful revascularization of RCA with 1 stent and of ostial LAD with 1 stent. She was observed overnight and did well. She was discharged home in a stable condition on dual antiplatelet therapy Physical Exam Narrative: GENERAL: Patient is alert, awake and oriented x3. [] NECK: No jugular vein distension. [] HEENT: No cyanosis. No icterus. No pallor. [] HEART: Regular S1 and S2. No murmur, rub or gallop. [] LUNGS: Clear to auscultate bilaterally. [] CENTRAL NERVOUS SYSTEM: Grossly nonfocal. [] EXTREMITIES: Lower extremities with no edema bilaterally Discharge Data Studies Completed and Pending Pending at discharge Category Date Time Status LANGUAGES AND LITERATURE INSTRUCTOR request for service Routine Exams 01/05/23 07:30 Taken Laboratory Results WBC 6.5 10^3/uL (4.0-10.0) 01/06/23 01:30 RBC 3.44 10^6/uL (4.1-5.3) L 01/06/23 01:30 Hgb 10.9 g/dL (11.5-15.3) L 01/06/23 01:30 Hct 33.5 % (37.0-47.0) L 01/06/23 01:30 MCV 97.4 fl (81-99) 01/06/23 01:30 MCH 31.7 pg (28.0-34.0) 01/06/23 01:30 MCHC 32.5 g/dL (30.0-36.0) 01/06/23 01:30 RDW 13.1 % (12.1-15.1) 01/06/23 01:30 Plt Count 207 10^3/cmm (130-400) 01/06/23 01:30 MPV 9.8 fL (7.4-10.4) 01/06/23 01:30 Neut % (Auto) 61.7 % 01/06/23 01:30 Lymph % (Auto) 28.5 % 01/06/23 01:30 [place] % (Auto) 7.4 % 01/06/23 01:30 Eos % (Auto) 1.4 % 01/06/23 01:30 Baso % (Auto) 0.5 % 01/06/23 01:30 Neut # (Auto) 4.01 10^3/uL (1.8-7.7) 01/06/23 01:30 Lymph # (Auto) 1.9 10^3/uL (0.8-4.8) 01/06/23 01:30 [place] # (Auto) 0.5 10^3/uL (0.2-0.9) 01/06/23 01:30 Eos # (Auto) 0.1 10^3/uL (0.0-0.8) 01/06/23 01:30 Baso # (Auto) 0.0 10^3/uL (0.0-0.1) 01/06/23 01:30 Nucleated RBC % (auto) 0 % 01/06/23 01:30 Nucleated RBCs # 0.0 /100WBC 01/06/23 01:30 Sodium 140 mmol/L (136-145) 01/06/23 01:30 Potassium 3.5 mmol/L (3.5-5.1) 01/06/23 01:30 Chloride 108 mmol/L (98-107) H 01/06/23 01:30 Carbon Dioxide 23 mmol/L (22-29) 01/06/23 01:30 Anion Gap 12.5 (5-19) 01/06/23 01:30 BUN 13 mg/dL (8-23) 01/06/23 01:30 Creatinine 0.8 mg/dL (0.5-0.9) 01/06/23 01:30 GFR Calculation Not Reportable 01/06/23 01:30 Glucose 80 mg/dL (65-115) 01/06/23 01:30 Calculated Osmolality 289 mOsm/kg (285-295) 01/06/23 01:30 Calcium 8.4 mg/dL (8.5-10.5) L 01/06/23 01:30 Vitals Last Vital Signs Temp 98.9 F 01/06/23 01:02 Pulse 65 01/06/23 05:12 Resp 18 01/06/23 04:00 BP 150/60 01/06/23 04:00 Pulse Ox 95 01/06/23 04:00 O2 Del Method Room Air 01/06/23 04:00 Discharge Plan Discharge Patient Disposition: Home Condition: Stable Prescriptions: New clopidogrel 75 mg Tablet 75 mg PO DAILY Qty: 90 3RF aspirin 81 mg Tablet,Delayed Release (Dr/Ec) 81 mg PO DAILY Qty: 90 3RF atorvastatin 40 mg Tablet 20 mg PO BEDTIME Qty: 90 2RF pantoprazole 40 mg tablet,delayed release (DR/EC) 40 mg PO DAILY Qty: 90 3RF Continued nitroglycerin 0.4 mg tablet, sublingual 0.4 mg sublingual Q5M PRN (Reason: chest pain) Qty: 30 3RF Rx Instructions: do not exceed 3 doses per episode hydrochlorothiazide 25 mg tablet 25 mg PO DAILY Qty: 90 2RF hydrocortisone [Proctozone-HC] 2.5 % cream with perineal applicator 1 applic [place] DAILY PRN (Reason: hemorrhoids) Qty: 30 0RF Rx Instructions: apply thing layer twice daily x2 weeks, than 1 daily x1 week, than every other day x 1 week Celexa 40 mg tablet 20 mg PO DAILY PRN (Reason: mood) Qty: 30 3RF loratadine 10 mg tablet 10 mg PO DAILY Qty: 30 6RF irbesartan 300 mg tablet 300 mg PO DAILY Qty: 30 3RF sennosides-docusate sodium [Senna with Docusate Sodium] 8.6-50 mg tablet 1 tab-cap PO BID Qty: 30 0RF Xanax 0.25 mg tablet 0.25 mg PO BEDTIME PRN (Reason: anxiety) Discontinued omeprazole 40 mg capsule,delayed release(DR/EC) 40 mg PO BID PRN (Reason: Acid Reflux) Qty: 60 4RF celecoxib 200 mg capsule 200 mg PO DAILY Qty: 30 3RF Discharge Orders: Discharge Order (Routine); Ordered 01/06/23 Ordered By: Miguel Alvarez Referrals: Miguel Alvarez M.D [Physician] - 2 months (Your Dr. Alvarez follow up appointment will be scheduled while you are at your Wendy Chacon appointment. Thank you.) Wendy Chacon FNP [Nurse Practitioner] - 01/20/23 10:45 am Discharge Diet: Cardiac Discharge Activity: Increase activity as tolerated Patient Instructions: Aspirin (By mouth) (Eva Extra Strength, Eva Aspirin [facility],..., Atorvastatin (By mouth) (Lipitor), Clopidogrel (By mouth) (Plavix), Pantoprazole (By mouth) (Protonix), Coronary Angioplasty (DC), Chest Pain Stoplight, Opioid Safety, Post Angiogram Home Care Instructions Discharge Attestations Time Spent in Discharge Care*: less than 30 min Quality Metrics Clinical Quality Measures [ No reported AMI, CVA or VTE this stay] Coding Level of Care Code Acute Code for Chg Fwd Diagnoses
[2023-01-06] MEDS: clopidogrel 75 mg Tablet PO (08:04)
[2023-01-06] MEDS: aspirin 81 mg EC Tablet PO (08:04)
[2023-01-06 08:05] VITALS: BP 166/70; PULSE 69; RESP 17; TEMP 37; O2SAT 97
[2023-01-06] MEDS: losartan 50 mg Tablet 100 MG PO (08:05)
[2023-01-06] MEDS: hydroCHLOROthiazide 25 mg Tablet PO (08:05)
--- NOTE | 2023-01-06 10:20 | PC.NURSE ---
IV removed at 9:30, patient tolerated well. Patient and spouse given verbal and written discharge education, both verbalized understanding. A&Ox3. Vitals WNL. Patient taken outside via wheel chair, patient left facility with at 9:45.
== END 2023-01-06 09:45 | disposition home or self-care (01) ==
LOC: CSU 10:44
PROVIDERS: Admitting Provider Internal Medicine; PCP Internal Medicine; Visit Provider Internal Medicine
DX: I25.10 Atherosclerotic heart disease of native coronary artery without angina pectoris (principal); R94.39 Abnormal result of other cardiovascular function study; Z95.5 Presence of coronary angioplasty implant and graft; I10 Essential (primary) hypertension
CPT/HCPCS: 36415; 80048; 85025; 85347; 96361; 96365; 99152; 99153; C1725; C1760; C1769; C1874; C1887; C1894; C9600; C9601; G0378; J0360; J1644; J2250; J3010; J3490; J7030; Q0163; Q9967

== ENCOUNTER → 2023-01-20 10:23 | Outpatient (BNVA) | payer MEDICARE, OTHER, SELFPAY | PROVIDERS: PCP Internal Medicine; Visit Provider Nurse Practitioner Family | DX: I25.10 Atherosclerotic heart disease of native coronary artery without angina pectoris (principal); I10 Essential (primary) hypertension | CPT/HCPCS: 99214 ==

== ENCOUNTER → 2023-03-21 11:45 | Outpatient (BNVA) | payer MEDICARE, OTHER, SELFPAY | PROVIDERS: PCP Internal Medicine; Visit Provider Internal Medicine Cardiovascular Disease | DX: I25.10 Atherosclerotic heart disease of native coronary artery without angina pectoris (principal); R91.1 Solitary pulmonary nodule; I10 Essential (primary) hypertension | CPT/HCPCS: 99214 ==

== ENCOUNTER 2023-04-18 08:53 | Outpatient (CLI) | payer MEDICARE, OTHER, SELFPAY ==
--- NOTE | 2023-04-18 09:00 | CT_ITS ---
WS: [id number] CT CHEST TECHNIQUE: Noncontrast CT of the chest with coronal and sagittal reformatted images. CLINICAL INFORMATION: f/u lung nodule COMPARISON: CT abdomen pelvis 11/06/2022 DLP: 230.[address] scans at [facility] use at least one of these dose optimization techniques: automated e xposure control; mA and/or kV adjustment per patient size (includes targeted exams where dose is matc hed to clinical indication); or iterative reconstruction. FINDINGS: Advanced chronic emphysematous changes. No acute pulmonary infiltrates. No focal pneumonia or pleural fluid. Bibasilar atelectasis. A few calcified granulomas. Subpleural nodule LEFT lower lobe measurin g 12 mm unchanged compared to 11/06/[address] RIGHT upper lobe nodule anteromedially measuring 8 mm. Irregular lobulated or clustered nodules in th e RIGHT middle lobe measuring 8 mm and 10 mm. Chronic scattered areas of fibrosis. Aortic calcification. Coronary calcification. No mediastinal or hilar lymphadenopathy. No axillary ly mphadenopathy. Moderate to large esophageal hiatal hernia. Adrenal glands are normal. Partially visualized RIGHT xavier al cyst measuring 2.4 cm. Adrenal glands are normal. Moderate thoracic kyphosis. IMPRESSION: 1. 12 mm subpleural nodule LEFT lower lobe is unchanged. 2. Lobulated nodule or clustered nodules in the RIGHT middle lobe measuring 8 and 10 mm. Recommend 6 -month chest CT follow-up. 3. Slightly spiculated nodule RIGHT upper lobe measuring 8 mm 4. Advanced chronic emphysematous changes. 5. No mediastinal or hilar lymphadenopathy. 6. Moderate to large esophageal hiatal hernia.
== END 2023-04-18 08:54 | disposition home or self-care (01) ==
LOC: RAD 08:55
PROVIDERS: PCP Internal Medicine; Visit Provider Internal Medicine Cardiovascular Disease
DX: R91.1 Solitary pulmonary nodule (principal); R91.8 Other nonspecific abnormal finding of lung field; J43.9 Emphysema, unspecified; K44.9 Diaphragmatic hernia without obstruction or gangrene
CPT/HCPCS: 71250

== ENCOUNTER → 2023-10-30 10:44 | Outpatient (BNVA) | payer MEDICARE, SELFPAY | PROVIDERS: PCP Internal Medicine; Visit Provider Internal Medicine Cardiovascular Disease | DX: R91.1 Solitary pulmonary nodule (principal); I10 Essential (primary) hypertension; I25.10 Atherosclerotic heart disease of native coronary artery without angina pectoris; K21.9 Gastro-esophageal reflux disease without esophagitis; R41.81 Age-related cognitive decline | CPT/HCPCS: 99213 ==

== ENCOUNTER 2023-12-22 14:06 | Outpatient (CLI) | payer MEDICARE, OTHER, SELFPAY ==
--- NOTE | 2023-12-22 14:30 | CTR_ITS ---
PROCEDURE INFORMATION: Exam: CT Chest Without Contrast; Diagnostic Exam date and time: 12/22/2023 2:34 PM Age: 88 years old Clinical indication: Abnormal findings; Abnormal radiologic exam of lung or chest; Prior surgery; Surgery date: 6+ months; Surgery type: Left lung; Patient HX: 1. 12 mm subpleural nodule left lower lobe is unchanged. 2. Lobulated nodule or clustered nodules in the right middle lobe measuring 8 and 10 mm. Recommend 6-month chest CT follow-up. 3. Slightly spiculated nodule right upper lobe measuring 8 mm 4. Advanced chronic emphysematous changes. 5. No mediastinal or hilar lymphadenopathy; Additional info: F/u pulmonary nodules, denies cancer TECHNIQUE: Imaging protocol: Diagnostic computed tomography of the chest without contrast. Radiation optimization: All CT scans at this facility use at least one of these dose optimization techniques: automated exposure control; mA and/or kV adjustment per patient size (includes targeted exams where dose is matched to clinical indication); or iterative reconstruction. COMPARISON: CT chest wo con [id number] 04/18/2023 9:12 AM RADIATION DOSE METRICS: Total DLP (mGy-cm): 241.45 FINDINGS: Thyroid: Grossly unremarkable. Lungs: Again seen is at 11-12 mm subpleural left lower lobe pulmonary nodule, not significantly changed since prior. Again seen are irregular nodular opacities in the right middle lobe as well as the anterior segment right upper lobe. No significant change since prior. No focal consolidation. No pneumothorax. Pleural spaces: No pleural effusion. Heart: No cardiomegaly. No pericardial effusion. Coronary arteries: There are incidental dense coronary artery calcifications with involvement of the left main. Mediastinal space: Trachea and airway are grossly patent. Moderate hiatal hernia with the GE junction and a portion of the gastric body above the diaphragm. Lymph nodes: No evidence of mediastinal adenopathy. Evaluation for hilar adenopathy is limited by lack of IV contrast. Vasculature: No evidence of aneurysmal dilatation of the thoracic aorta. Evaluation for acute vascular injury or thrombosis is limited by lack of IV contrast. Bones/joints: No evidence of acute fracture or aggressive osseous lesion. Soft tissues: No evidence of fluid collection or hematoma in the superficial soft tissues. Other findings: No evidence of acute abnormality in the upper abdomen. CT/CT chest wo con [id number] IMPRESSION: 1. No new or enlarging pulmonary nodules. Follow-up CT of the chest in 12 months is recommended. 2. Coronary artery disease. References: Jaxon Mcmullen, et al. Guidelines for Management of Incidental Pulmonary Nodules Detected on CT Images: From the Fleischner Society 2017. Radiology. 2017;284(1):228-243.
== END 2023-12-22 14:07 | disposition home or self-care (01) ==
LOC: RAD 14:06
PROVIDERS: PCP Internal Medicine; Visit Provider Internal Medicine Cardiovascular Disease
DX: R91.1 Solitary pulmonary nodule (principal); R91.8 Other nonspecific abnormal finding of lung field; K44.9 Diaphragmatic hernia without obstruction or gangrene; I25.10 Atherosclerotic heart disease of native coronary artery without angina pectoris
CPT/HCPCS: 71250

== ENCOUNTER → 2024-05-30 09:48 | Outpatient (BNVA) | payer MEDICARE, OTHER, SELFPAY | PROVIDERS: PCP Family Medicine; Visit Provider Nurse Practitioner Family | DX: I25.10 Atherosclerotic heart disease of native coronary artery without angina pectoris (principal); I10 Essential (primary) hypertension; R07.9 Chest pain, unspecified | CPT/HCPCS: 99214 ==

== ENCOUNTER 2024-06-30 20:44 | Emergency (ER) | payer MEDICARE, SELFPAY ==
--- NOTE | 2024-06-30 20:48 | ECG_ITS ---
[facility] Test Date: 2024-06-30 Pat Name: Madi Morgan Department: Room: Gender: Female Product Tester: : 1935 Requested By: Vargas Messina Order Number: [id number] Blake MD: Guillermo Rivera M.D. Measurements Intervals [place] Rate: 83 P: 55 NM: 174 QRS: 30 QRSD: 136 T: 45 QT: 401 QTc: 474 Interpretive Statements SINUS RHYTHM INDETERMINATE AXIS RIGHT BUNDLE BRANCH BLOCK [120+ ms QRS DURATION, UPRIGHT V1, 40+ ms S IN I/aVL/V4/V5/V6] MODERATE VOLTAGE CRITERIA FOR LVH, CONSIDER NORMAL VARIANT [MEETS CRITERIA IN ONE OF: R(aVL), S(V1), R(V5), R(V5/V6)+S(V1)] INFERIOR MYOCARDIAL INFARCTION , PROBABLY OLD [40+ ms Q WAVE AND/OR ST/T ABNORMALITY IN II/aVF].Compared to ECG 11/06/2022 23:06:55 Indeterminate axis now present.Myocardial infarct finding now present ST (T wave) deviation no longer present Electronically Signed On 06-30-2024 22:24:36 COMPLETION MANAGER by Guillermo Rivera M.D. [id number]
[2024-06-30 20:50] VITALS: BP 174/92; PULSE 81; RESP 16; TEMP 36.7; O2SAT 97
--- NOTE | 2024-06-30 20:53 | XRR_ITS ---
PROCEDURE INFORMATION: Exam: XR Chest Exam date and time: 06/30/2024 9:39 PM Age: 89 years old Clinical indication: Chest pressure; Prior surgery; Surgery date: 6+ months; Surgery type: Coronary stents; Patient HX: C/O chest pain that started about 30 mins ago. Took 2 sl nitro ( from ) and felt that it helped the pain. HX stents. Stabbing pain - felt like it was under her left breast. TECHNIQUE: Imaging protocol: Radiologic exam of the chest. Views: 1 view. COMPARISON: CT chest [facility] [id number] 12/22/2023 2:34 PM FINDINGS: Lungs: No focal consolidation. Pleural spaces: No evidence of pneumothorax. No evidence of pleural effusion. Heart/Mediastinum: Cardiomediastinal silhouette is within normal limits. Bones/joints: No evidence of acute osseous abnormality. XR/XR chest 1V portable [id number] IMPRESSION: 1. No acute cardiopulmonary abnormality.
--- NOTE | 2024-06-30 21:35 | ED_ITS ---
HPI - Chest Pain 2 General: Chief Complaint: Chest Pain Stated Complaint: CP SOB had 2 nitro Time Seen by Provider: 06/30/24 21:14 History of Present Illness: 89-year-old female with a history of cor onary disease. She had stents to her LAD and right coronary, staged procedure 2 years ago. She presents with pain under her left breast. No radiation. No shortness of breath. No nausea or vomiting. She took 2 of her husbands nitroglycerin with some relief. Related Data Home Medications Medication Instructions Recorded Confirmed sennosides 8.6 mg-docusate sodium 1 tab-cap PO BID PRN constipation 03/21/23 06/26/24 50 mg tablet (Senna with Docusate Sodium) loratadine 10 mg tablet (Allergy 10 mg PO DAILY 10/30/23 06/26/24 Relief (loratadine)) atorvastatin 40 mg tablet 40 mg PO DAILY 04/09/24 06/26/24 Previous Rx's Medication Instructions Recorded nitroglycerin 0.4 mg sublingual 0.4 mg sublingual Q5M PRN chest 12/10/20 tablet pain #30 tabs hydrocortisone 2.5 % topical cream 1 applic [place] DAILY PRN hemorrhoids 12/28/20 with perineal applicator #30 grams (Proctozone-HC) aspirin 81 mg tablet,delayed See Rx Instructions .Route 01/09/24 release .COMPLEX #90 tabs pantoprazole 40 mg tablet,delayed 40 mg PO DAILY #90 tabs 02/12/24 release amlodipine 2.5 mg tablet 2.5 mg PO DAILY #90 tabs 02/16/24 hydrochlorothiazide 25 mg tablet 25 mg PO DAILY #90 tabs 03/12/24 clopidogrel 75 mg tablet See Rx Instructions .Route 03/13/24 .COMPLEX #90 tabs citalopram 40 mg tablet (Celexa) 20 mg (1/2 x 40 mg) PO DAILY PRN 04/04/24 mood #30 tabs irbesartan 75 mg tablet 75 mg PO DAILY #90 tabs 04/09/24 methocarbamol 500 mg tablet 500 mg PO BID PRN back pain #20 06/26/24 tabs Allergies Allergy/AdvReac Type Severity Reaction Status Date / Time naproxen [From Aleve] AdvReac ADR-Itching Verified 06/30/24 20:53 PFSH ED 2 PFSH: Medical History Moderate major depression Lung nodule seen on imaging study Coronary artery disease Colovesical fistula Urgency incontinence Recurrent UTI Essential (primary) hypertension GERD (gastroesophageal reflux disease) Constipation Surgical History H/O partial cystectomy (02/15/21) Status post laparoscopic-assisted sigmoidectomy (02/15/21) S/P cystoscopy History of colonoscopy 04/09/2018 Family History Other Diabetes Heart disease Social History Smoking and tobacco/nicotine status: never used tobacco/nicotine Alcohol intake: never Substance/Drug Use: never Adopted: No Caregiver/support person: No Lives independently: No Household members: spouse Housing: House Marital status: Physical Exam 2 Const: COMMON NORMALS: no acute distress GENERAL APPEARANCE: cooperative; not ill appearing HENMT: COMMON NORMALS: normocephalic, atraumatic and Normal external nose present HEAD & SCALP: normocephalic and atraumatic FACE & SINUS: normal facial exam and face symmetric NOSE: Normal external nose present Eye: COMMON NORMALS: Equal, round and reactive pupils present and EOMs intact bilaterally PUPIL: Yes Equal, round and reactive pupils present Neck/C-Spine: GENERAL: Yes trachea midline Chest: CHEST: Yes Symmetrical chest wall rise and Yes tenderness (Left chest wall anteriorly) Resp: COMMON NORMALS: normal respiratory effort, No retractions, No use of accessory muscles and clear to auscultation bilaterally AUSCULTATION: clear to auscultation bilaterally Cardio: COMMON NORMALS: regular rate and regular rhythm RATE: regular rate RHYTHM: regular rhythm GI: COMMON NORMALS: Normal to inspection, nondistended, normoactive bowel sounds present PALPATION: Yes Tenderness to palpation present (GI) (Mild epigastric) Extremity: COMMON NORMALS: no pedal edema Neuro: HEYDI COMA SCALE: document GCS findings Heydi coma scale eye opening: Spontaneous Heydi coma scale verbal response: Orientated [place] coma scale motor response: Obey commands Heydi coma scale total score: 15 S ENSORY EXAM: Yes extremities (intact) Psych: COMMON NORMALS: speech normal SPEECH: Yes normal speech Skin: COMMON NORMALS: no rashes or lesions noted GENERAL SKIN EXAM: no rashes or lesions noted Course 2 Vital Signs: Vital signs: Vital Signs Temperature 98.0 F 06/30/24 20:50 Pulse Rate 69 07/01/24 00:08 Respiratory Rate 14 07/01/24 00:08 Blood Pressure 171/71 07/01/24 00:08 Pulse Oximetry 96 07/01/24 00:08 Oxygen Delivery Me thod Room Air 06/30/24 20:50 MDM - Chest Pain Medical Decision Making 89-year-old female with chest discomfort. She does have a history of coronary disease. Pain is reproducible on palpation. She is hypertensive. This is improved after Nitropaste. GI cocktail seemed to help to some degree as well. Initial EKG showed minimal ST wave depression diffusely. This returned to baseline at 2 hours. Delta troponin is 2. Laboratory is not remarkable otherwise. Chest x-ray is negative. With atypical pain, no significant change in troponin, negative chest x-ray, and atypical symptoms, she will be allowed home. To return for worsening symptoms. Lab Data 06/30/24 21:25 06/30/24 21:25 Radiology Impressions Chest X-Ray 06/30/24 20:53 IMPRESSION: 1. No acute cardiopulmonary abnormality. Laboratory Results WBC 6.09 10^3/uL (3.29-11.43) 06/30/24 21: RBC 3.95 10^6/uL (3.85-5.65) 06/30/24: Hgb 12.00 g/dL (11.27-16.99) 06/30/24: Hct 36.7 % (36-47) 06/30/24 21: MCV 92.9 fl (85-98) 06/30/24 21: MCH 30.4 pg (27-33) 06/30/24: MCHC 32.7 g/dL (30-55) 06/30/24 21: RDW 12.2 % (12.1-15.1) 06/30/24: Plt Count 254 10^3/cmm (157-399) 06/30/24: MPV 9.5 fL (7.4-10.4) 12/15/24 21:25 Neut % (Auto) 60.7 % 06/30/24 21: Lymph % (Auto) 26.4 % 06/30/24 21:25 [place] % (Auto) 10.7 % 06/30/24 21: Eos % (Auto) 1.6 % 06/30/24 21:25 Baso % (Auto) 0.3 % 06/30/24 21: Neut # (Auto) 3.69 10^3/uL (1.8-7.7) 06/30/24: Lymph # (Auto) 1.6 10^3/uL (0.8-4.8) 06/30/24 21: [place] # (Auto) 0.7 10^3/uL (0.2-0.9) 06/30/24 21: Eos # (Auto) 0.1 10^3/uL (0.0-0.8) 06/30/24 21: Baso # (Auto) 0.0 10^3/uL (0.0-0.1) 06/30/24 21: Nucleated RBC % (auto) 0 % 06/30/24 21: Nucleated RBCs # 0.0 /100WBC 06/30/24 21:25 Sodium 136 mmol/L (136-145) 06/30/24 21: Potassium 3.5 mmol/L (3.5-5.1) 06/30/24 21:25 Chloride 101 mmol/L (98-107) 06/30/24 21: Carbon Dioxide 25 mmol/L (22-29) 06/30/24 21:25 Anion Gap 13.5 (5-19) 06/30/24 21:25 BUN 17 mg/dL (8-23) 06/30/24 21:25 Creatinine 1.0 mg/dL (0.5-0.9) H 06/30/24 21:25 GFR Calculation Not Reportable 06/30/24 21:25 Glucose 109 mg/dL (65-115) 06/30/24 21:25 Calculated Osmolality 284 mOsm/kg (285-295) L 06/30/24 21:25 Lactic Acid 2.0 mmol/L (0.5-2.2) 06/30/24 21:25 Calcium 9.0 mg/dL (8.5-10.5) 06/30/24 21:25 Total Bilirubin 0.2 mg/dL (0.15-1.2) 06/30/24 21:25 AST 18 U/L (0-32) 06/30/24 21:25 ALT 9 U/L (0-33) 06/30/24 21:25 Alkaline Phosphatase 93 U/L (35-105) 06/30/24 21:25 Troponin T Baseline 18 ng/L (0-10) H 06/30/24 21:25 Troponin T 120 Minute 20.47 ng/L (0-10) H 06/30/24 23:09 Delta Troponin T 2.47 ABS# (0-10) 06/30/24 23:09 NT-Pro-B Natriuret Pep 430 pg/mL (0-450) 06/30/24 21:25 Total Protein 6.4 g/dL (6.6-8.7) L 06/30/24 21:25 Albumin 4.1 g/dL (3.5-5.2) 06/30/24 21:25 Globulin 2.3 g/dL (1.3-4.6) 06/30/24 21:25 Coronavirus (PCR) Negative (Negative) 06/30/24 22:10 Influenza A (PCR) Negative (Negative) 06/30/24 22:10 Influenza Type B (PCR) Negative (Negative) 06/30/24 22:10 RSV (PCR) Negative (Negative) 06/30/24 22:10 All radiology interpretation(s) finalized by discharge Discharge Plan Discharge Patient Disposition: Home Clinical Impression: Chest pain, Hypertension Condition: Stable Prescriptions: No Action nitroglycerin 0.4 mg tablet, sublingual 0.4 mg sublingual Q5M PRN (Reason: chest pain) Qty: 30 3RF Rx Instructions: do not exceed 3 doses per episode loratadine [Allergy Relief (loratadine)] 10 mg tablet 10 mg PO DAILY sennosides-docusate sodium [Senna with Docusate Sodium] 8.6-50 mg tablet 1 tab-cap PO BID PRN (Reason: constipation) atorvastatin 40 mg tablet 40 mg PO DAILY irbesartan 75 mg tablet 75 mg PO DAILY Qty: 90 1RF methocarbamol 500 mg tablet 500 mg PO BID PRN (Reason: back pain) Qty: 20 0RF hydrocortisone [Proctozone-HC] 2.5 % cream with perineal applicator 1 applic [place] DAILY PRN (Reason: hemorrhoids) Qty: 30 0RF Rx Instructions: apply thing layer twice daily x2 weeks, than 1 daily x1 week, than every other day x 1 week aspirin 81 mg tablet,delayed release (DR/EC) See Rx Instructions .ROUTE .COMPLEX Qty: 90 3RF Dose Instruction: TAKE ONE TABLET BY MOUTH daily Rx Instructions: TAKE ONE TABLET BY MOUTH daily pantoprazole 40 mg tablet,delayed release (DR/EC) 40 mg PO DAILY Qty: 90 3RF amlodipine 2.5 mg tablet 2.5 mg PO DAILY Qty: 90 3RF hydrochlorothiazide 25 mg tablet 25 mg PO DAILY Qty: 90 2RF clopidogrel 75 mg tablet See Rx Instructions .ROUTE .COMPLEX Qty: 90 3RF Dose Instruction: TAKE ONE TABLET BY MOUTH every DAY Rx Instructions: TAKE ONE TABLET BY MOUTH every DAY Celexa 40 mg tablet 20 mg PO DAILY PRN (Reason: mood) Qty: 30 3RF Discharge Orders: Discharge ED (Routine); Ordered 07/01/24 Ordered By: Vargas Harrison Referrals: Lavell Elaine MD [Primary Care Provider] - 1-3 days Patient Instructions: Chest Pain (ED), Hypertension (ED), Opioid Safety, Pain Management Activity Restrictions/Additional Instructions: Check your blood pressure twice daily, report numbers to your doctor. Return for worsening chest pain, vomiting, shortness of breath, any other concerning symptoms. Coding Level of Care Code ED Real Estate Loan Processor for Gustabo Pratt
[2024-06-30 21:43] LABS: Basophils % 0.3 %; Eosinophils # 0.1 10^3/uL (0.0-0.8); Eosinophils % 1.6 %; Hematocrit 36.7 % (36-47); Lymphocytes # 1.6 10^3/uL (0.8-4.8); Lymphocytes % 26.4 %; Mean Corpuscular HGB Conc 32.7 g/dL (30-55); Mean Corpuscular Hemoglobin 30.4 pg (27-33); Mean Corpuscular Volume 92.9 fl (85-98); Mean Platelet Volume 9.5 fL (7.4-10.4); Monocytes # 0.7 10^3/uL (0.2-0.9); Monocytes % 10.7 %; Neutrophils # 3.69 10^3/uL (1.8-7.7); Neutrophils % 60.7 %; Nucleated Red Blood Cells % 0 %; Platelet Count 254 10^3/cmm (157-399); Red Blood Count 3.95 10^6/uL (3.85-5.65); Red Cell Distribution Width 12.2 % (12.1-15.1); White Blood Count 6.09 10^3/uL (3.29-11.43)
[2024-06-30 21:52] LABS: Troponin(5th) Baseline 18 ng/L (0-10)
[2024-06-30 22:06] LABS: Alanine Aminotransferase 9 U/L (0-33); Albumin Level 4.1 g/dL (3.5-5.2); Alkaline Phosphatase 93 U/L (35-105); Anion Gap 13.5 (5-19); Aspartate Amino Transferase 18 U/L (0-32); Blood Urea Nitrogen 17 mg/dL (8-23); Carbon Dioxide 25 mmol/L (22-29); Chloride 101 mmol/L (98-107); Creatinine Clr Calc Pharmacy 34.2894; Globulin 2.3 g/dL (1.3-4.6); Glucose 109 mg/dL (65-115); NT Pro B Type Natriuretic Pept 430 pg/mL (0-450); Osmolality Calculated 284 mOsm/kg (285-295); Potassium 3.5 mmol/L (3.5-5.1); Sodium 136 mmol/L (136-145); Total Bilirubin 0.2 mg/dL (0.15-1.2); Total Protein 6.4 g/dL (6.6-8.7)
[2024-06-30 22:14] VITALS: BP 180/79; PULSE 69
[2024-06-30] MEDS: lidocaine 2% viscous 15 ML, aluminum-mag hydrox-simethicon 30 ML, sucralfate oral liq 1 GM PO (22:14)
[2024-06-30] MEDS: nitroglycerin 1 gm/inch oint Pkt 1.5 INCH TOPICAL (22:14)
[2024-06-30 22:23] VITALS: BP 166/85; PULSE 66; RESP 17; O2SAT 97
--- NOTE | 2024-06-30 22:55 | ECG_ITS ---
[employer] Test Date: 2024-06-30 Pat Name: Madi Morgan Department: Room: Gender: Female Catia Designer: : 1935 Requested By: Deja Woo Order Number: [id number] Blake MD: Guillermo Rivera M.D. Measurements Intervals [place] Rate: 68 P: 71 RI: 190 QRS: 14 QRSD: 138 T: 54 QT: 454 QTc: 486 Interpretive Statements SINUS RHYTHM RIGHT BUNDLE BRANCH BLOCK [120+ ms QRS DURATION, UPRIGHT V1, 40+ ms S IN I/aVL/V4/V5/V6] MODERATE VOLTAGE CRITERIA FOR LVH, CONSIDER NORMAL VARIANT [MEETS CRITERIA IN ONE OF: R(aVL), S(V1), R(V5), R(V5/V6)+S(V1)] INFERIOR MYOCARDIAL INFARCTION , PROBABLY OLD [40+ ms Q WAVE AND/OR ST/T ABNORMALITY IN II/aVF] Compared to ECG 06/30/2024 20:48:05 Indeterminate axis no longer present Myocardial infarct finding still present Electronically Signed On 07-01-2024 19:32:07 HEALTH SERVICE WORKER by Guillermo Rivera M.D. [id number]
[2024-06-30 23:00] LABS: Covid PCR NEGATIVE (Negative); Influenza A NEGATIVE (Negative); Influenza B NEGATIVE (Negative); Respiratory Syncytial Virus Ce NEGATIVE (Negative)
[2024-06-30 23:08] VITALS: BP 182/91; PULSE 67; RESP 15; O2SAT 95
[2024-06-30 23:34] LABS: Troponin 5 2HR 20.47 ng/L (0-10); Troponin 5 2HR Delta 2.47 ABS# (0-10)
[2024-06-30 23:38] VITALS: BP 164/67; PULSE 68; RESP 15; O2SAT 96
[2024-07-01 00:08] VITALS: BP 171/71; PULSE 69; RESP 14; O2SAT 96
== END 2024-07-01 00:42 | disposition home or self-care (01) ==
PROVIDERS: Emergency Medicine; Emergency Provider Emergency Medicine; PCP Family Medicine
DX: R07.9 Chest pain, unspecified (principal); I10 Essential (primary) hypertension; Z79.02 Long term (current) use of antithrombotics/antiplatelets; Z79.82 Long term (current) use of aspirin; Z11.52 Encounter for screening for COVID-19; I25.10 Atherosclerotic heart disease of native coronary artery without angina pectoris
CPT/HCPCS: 0241U; 36415; 71045; 80053; 83605; 83880; 84484; 85025; 87040; 93005; 99285

== ENCOUNTER → 2024-11-06 09:10 | Outpatient (BNVA) | payer MEDICARE, OTHER, SELFPAY | PROVIDERS: PCP Family Medicine; Visit Provider Nurse Practitioner Family | DX: D18.01 Hemangioma of skin and subcutaneous tissue (principal); L81.4 Other melanin hyperpigmentation; L57.8 Other skin changes due to chronic exposure to nonionizing radiation; L82.1 Other seborrheic keratosis; X32.XXXA Exposure to sunlight, initial encounter; D48.5 Neoplasm of uncertain behavior of skin; L57.0 Actinic keratosis | CPT/HCPCS: 11102; 17000; 99203 ==

== ENCOUNTER → 2024-12-03 11:15 | Outpatient (BNVA) | payer MEDICARE, OTHER, SELFPAY | PROVIDERS: PCP Family Medicine; Visit Provider Dermatology | DX: D04.62 Carcinoma in situ of skin of left upper limb, including shoulder (principal); D04.39 Carcinoma in situ of skin of other parts of face; C44.519 Basal cell carcinoma of skin of other part of trunk | CPT/HCPCS: 17262; 17280 ==

== ENCOUNTER 2024-12-23 13:16 | Outpatient (CLI) | payer MEDICARE, OTHER, SELFPAY ==
--- NOTE | 2024-12-23 13:30 | CT_ITS ---
WS: [id number] CT chest wo con [id number] HISTORY: 1yr nodule f/u TECHNIQUE: Axial imaging performed through the thorax. Coronal and sagittal reformats are submitted. All CT scans at [facility] use at least one of these dose optimization techniques: automated exposure control; mA and/or kV adjustment per patient size (includes targeted exams where dose is matched to clinical indication); or iterative reconstruction. CONTRAST: None DLP: 296.61 mGy.cm COMPARISON: 12/22/2023, 04/18/2023 Lungs and central airway: Subpleural 11 mm LEFT lower lobe nodule is reidentified with no increase in size. RIGHT middle lobe cluster of nodules is similar to prior studies. No new mass or nodule. Pleura: Normal. No pleural effusion. Heart and pericardium: Mildly enlarged heart. Mediastinum and christiano: No adenopathy. Vessels: Mild atherosclerosis aorta. No aneurysm. Normal size pulmonary artery. Chest wall and lower neck: No soft tissue masses. Upper abdomen: Large hiatal hernia. Large portion of the stomach is intrathoracic. No outlet obstruction. Suprarenal aortic calcifications. No adrenal mass. Osseous structures: Increase in thoracic kyphosis. CT/CT chest wo con [id number] IMPRESSION: 1. No change in the subpleural LEFT lower lobe pulmonary nodule measuring 11 m m. 2. No new or enlarging mass or nodule. 3. Large hiatal hernia. 4. No adenopathy.
== END 2024-12-23 13:17 | disposition home or self-care (01) ==
LOC: RAD 13:17
PROVIDERS: PCP Family Medicine; Visit Provider Family Medicine
DX: R91.8 Other nonspecific abnormal finding of lung field (principal); K44.9 Diaphragmatic hernia without obstruction or gangrene; I51.7 Cardiomegaly; I70.0 Atherosclerosis of aorta; R93.3 Abnormal findings on diagnostic imaging of other parts of digestive tract; I70.8 Atherosclerosis of other arteries; M40.294 Other kyphosis, thoracic region
CPT/HCPCS: 71250

== ENCOUNTER → 2025-03-14 09:26 | Outpatient (BNVA) | payer MEDICARE, OTHER, SELFPAY | PROVIDERS: PCP Family Medicine; Visit Provider Nurse Practitioner Family | DX: D04.39 Carcinoma in situ of skin of other parts of face (principal); D04.62 Carcinoma in situ of skin of left upper limb, including shoulder; C44.519 Basal cell carcinoma of skin of other part of trunk; L57.8 Other skin changes due to chronic exposure to nonionizing radiation; L82.1 Other seborrheic keratosis | CPT/HCPCS: 99213 ==

== ENCOUNTER 2025-06-18 18:18 | Emergency (ER) | payer MEDICARE, OTHER, SELFPAY ==
--- OUTSIDE RECORDS SUMMARY | 2025-06-18 18:24 | XMS_ITS | Patient Health Record ---
Author Organization [facility] Address [address] [place] [address] Care Team Providers Care Bariatric Coordinator Name Role Phone Joe Vaughan Primary Care Provider Marvin Leiva Unavailable [phone] Allergies No Known Allergies Reason For Referral No Information Medications Medication SIG (Take, Route, Frequency, Duration) Notes Start Date End Date Status Sennosides 8.6 MG Tablet 1 tablet at bed time as needed Orally Once a day Not-Taking amLODIPine Besylate 2.5 MG Tablet 1 tablet Orally Once a day Active Loratadine 10 mg Tablet TAKE 1 TABLET BY MOUTH EVERY DAY; Duration: 30 Active Celecoxib 200 mg Capsule take 1 capsule BY MOUTH EVERY DAY with food; Duration: 30 Active Irbesartan 300 mg Tablet TAKE ONE TABLET BY MOUTH ONCE DAILY; Duration: 90 Active Zofran 4 MG Tablet 1 tablet Orally Q4-6 hours Active Citalopram Hydrobromide 20 MG Tablet 1 tablet NEEDED Orally Once a day Not-Taking Omeprazole 40 mg Capsule Delayed Release TAKE 1 CAPSULE BY MOUTH TWO TIMES DAILY NEEDED FOR acid reflux; Duration: 30 Active Nitroglycerin 0.4 MG Tablet Sublingual 1 tab Sublingual every 5 min Active Nitrofurantoin Monohyd Macro 100 mg Capsule TAKE ONE CAPSULE BY MOUTH every 12 hours with food; Duration: 7 Not-Takin g Pantoprazole Sodium 40 MG Tablet Delayed Release 1 tablet Orally Once a day Not-Taking Proctozone-HC 2.5 % Cream apply rectally TWICE DAILY; Duration: 30 Not-Taking Citalopram Hydrobromide 40 mg Tablet TAKE 1/2 TABLET BY MOUTH EVERY DAY NEEDED FOR MOOD; Duration: 60 Active Social History Tobacco Use: Social History Observation Description Date Details (start date - stop date) Never Smoker NA - NA Social History Drugs/Alcohol: Social Info Question Answer Notes Alcohol Screen (Audit-C) Did you have a drink containing alcohol in the past year? No Points 0 Interpretation Negative Drugs Have you used drugs other than those for medical reasons in the past 12 months? No Tobacco Use: Social Info Question Answer Notes xTobacco Use/Smoking Are you a nonsmoker Problems Problem Type SNOMED Code ICD Code Onset Dates Problem Status W/U Status Risk Notes Problem Alzheimer's disease with late onset (001409557) Alzheimer's disease with late onset (G30.1) Active confirmed Problem Essential hypertension (43480982) Essential hypertension (I10) Active confirmed Problem Atherosclerotic heart disease of [place] coronary artery without angina pectoris (749751354637354) Coronary artery disease involving [place] coronary artery of [place] heart without angina pectoris (I25.10) Active confirmed Problem Frailty (466148038) Frailty (R54) Active confir med Problem Excoriated eczema (349398123) Excoriated eczema (L30.8) Active confirmed Plan Of Treatment No Information Insurance Providers Payer Name Payer Address Payer Phone Subscriber Number Group Number Insured Name Patient Relationship to Insured Coverage Start Date Coverage End Date [place] [address] [place] [phone] [id number] Madi Morgan Self - patient is the insured [employer] [address] [place] [address] [id number] Madi Morgan Self - patient is the insured Medical (General) History Medical History History ICD Code part of colon removed 2 stents 2021 Colovesical fistula constipation coronary artery disease Essential hypertension GERD UTI recurrent Urgency inconrinence Surgical History Surgery Date(Month/Year) colon resection partial cystectomy colonoscopy post laparoscopic assisted sigmoidedctom y cystoscopy
--- NOTE | 2025-06-18 18:30 | CTR_ITS ---
PROCEDURE INFORMATION: Exam: CT Head Without Contrast Exam date and time: 06/18/2025 7:21 PM Age: 89 years old Clinical indication: Altered mental status/memory loss; Additional info: AMS TECHNIQUE: Imaging protocol: Computed tomography of the head without contrast. Radiation optimization: All CT scans at this facility use at least one of these dose optimization techniques: automated exposure control; mA and/or kV adjustment per patient size (includes targeted exams where dose is matched to clinical indication); or iterative reconstruction. COMPARISON: No relevant prior studies available. RADIATION DOSE METRICS: Total DLP (mGy-cm): 1064.38 FINDINGS: Brain: No acute hemorrhage, edema, or mass effect. Areas of periventricular and subcortical hypoattenuation likely reflecting chronic microvascular ischemic changes given the patient's age. Chronic appearing left thalamocapsular lacunar infarct. Age-indeterminate tiny bilateral gangliocapsular lacunar infarcts. Cerebral ventricles: Generalized age-related cerebral volume loss. No hydrocephalus. Paranasal sinuses: The paranasal sinuses are clear. Mastoid air cells: Left mastoid air cells are underpneumatized. Trace fluid in the mastoid tip. Right tympanomastoid cavity is clear. Bones: Unremarkable. No acute fracture. Soft tissues: Unremarkable. CT/CT head wo con* [id number] IMPRESSION: 1. No acute hemorrhage, edema, or mass effect. 2. Chronic microvascular ischemic changes. 3. Chronic appearing left thalamocapsular lacunar infarct. Age-indeterminate tiny bilateral gangliocapsular lacunar infarcts. If there is clinical concern for acute infarct, consider MRI for further evaluation if no contraindication.
--- NOTE | 2025-06-18 18:30 | XRR_ITS ---
PROCEDURE INFORMATION: Exam: XR Chest Exam date and time: 06/18/2025 6:47 PM Age: 89 years old Clinical indication: Cough and dyspnea; Additional info: Dyspnea/cough TECHNIQUE: Imaging protocol: Radiologic exam of the chest. Views: 1 view. COMPARISON: CT chest con [id number] 12/23/2024 1:35 PM FINDINGS: Lungs: Clear lungs. Pleural spaces: No pneumothorax or pleural effusion. Heart/Mediastinum: Cardiac silhouette is normal. Bones/joints: Unremarkable. XR/XR chest 1V portable [id number] IMPRESSION: No acute findings.
[2025-06-18 18:39] VITALS: BP 185/77; PULSE 94; TEMP 38.2; O2SAT 95; BMI 21.1
--- NOTE | 2025-06-18 18:47 | ECG_ITS ---
[facility] Pat Name: Madi Morgan Department: Room: Gender: Female [employer]or: : 1935 Requested By: Yadiel Woo Order Number: [id number] Blake MD: Guillermo Rivera M.D. Measurements Intervals [place] Rate: 93 P: 22 AL: 167 QRS: 95 QRSD: 131 T: 51 QT: 387 QTc: 483 Interpretive Statements SINUS RHYTHM RIGHT BUNDLE BRANCH BLOCK [120+ ms QRS DURATION, UPRIGHT V1, 40+ ms S IN I/aVL/V4/V5/V6] Compared to ECG 06/30/2024 22:55:17 Myocardial infarct finding no longer present Electronically Signed On 06-18-2025 23:25:50 [employer] by Guillermo Rivera M.D. [email or web address]
[2025-06-18 19:23] LABS: Hematocrit 36.5 % (36-47); Hemoglobin 11.70 g/dL (11.27-16.99); Mean Corpuscular HGB Conc 32.1 g/dL (30-55); Mean Corpuscular Hemoglobin 28.4 pg (27-33); Mean Corpuscular Volume 88.6 fl (85-98); Nucleated Red Blood Cells % 0 %; Platelet Count 251 10^3/cmm (157-399); Red Blood Count 4.12 10^6/uL (3.85-5.65); White Blood Count 9.62 10^3/uL (3.29-11.43)
[2025-06-18 19:42] LABS: Alanine Aminotransferase 9 U/L (0-33); Albumin Level 4.0 g/dL (3.5-5.2); Alkaline Phosphatase 85 U/L (35-105); Anion Gap 15.8 (5-19); Aspartate Amino Transferase 25 U/L (0-32); Blood Urea Nitrogen 23 mg/dL (8-23); Calcium 8.7 mg/dL (8.5-10.5); Carbon Dioxide 23 mmol/L (22-29); Chloride 102 mmol/L (98-107); Globulin 3.0 g/dL (1.3-4.6); Glucose 120 mg/dL (65-115); Osmolality Calculated 289 mOsm/kg (285-295); Potassium 3.8 mmol/L (3.5-5.1); Sodium 137 mmol/L (136-145); Total Protein 7.0 g/dL (6.6-8.7)
--- NOTE | 2025-06-19 09:41 | PC.NURSE ---
Called to follow up with patient after LWBS yesterday. Pt was still resting. Spoke with pts . He said that she was tired of waiting and not feeling well yesterday and came home. She had chills last night but would bring her back today if she did not wake up feeling better.
== END 2025-06-18 20:50 | disposition left against medical advice (07) ==
PROVIDERS: Emergency Provider Family Medicine; PCP Family Medicine
DX: Z01.89 Encounter for other specified special examinations (principal); Z53.21 Procedure and treatment not carried out due to patient leaving prior to being seen by health care provider; I63.81 Other cerebral infarction due to occlusion or stenosis of small artery; R05.9 Cough, unspecified; R06.00 Dyspnea, unspecified; I45.10 Unspecified right bundle-branch block
CPT/HCPCS: 36415; 70450; 71045; 80053; 85025; 93005; 99285